=== PATIENT | male | born 1945 | race Hispanic/Latino ===

== ENCOUNTER 2018-01-03 15:53 | Inpatient (IN) | payer MEDICARE, OTHER ==
[2018-01-03 16:10] VITALS: BMI 34.1
--- NOTE | 2018-01-03 16:57 | ED PDOC ---
Arrival/HPI - General Chief Complaint: Abnormal Skin Integrity Time Seen by Provider: 01/03/18 16:06 Historian: Patient - History of Present Illness Narrative History of Present Illness (Text): 01/03/18 16:50 72 m with pmhx dm 2 and htn, recently treated for c. difficle presents to the ED with chief complaint of jaundice. Patient states he was treated for c.diff, was placed on oral antibiotics, diarrhea resolved. Patient states this past Wednesday he noticed yellowing of his skin, saw pcp and was sent to the ED for evaluation. Patient denies any associated fever, no abdominal pain, no vomiting, no recent sick contacts, no recent foreign travel, no abnormal po intake. Patient admit to tea colored urine within the same time frame of jaundice. 01/03/18 17:25 Time/Duration: < week Symptom Onset: Gradual Symptom Course: Unchanged Activities at Onset: Light Context: Home Past Medical History - Provider Review Nursing Documentation Reviewed: Yes - Infectious Disease Hx of Infectious Diseases: None - Cardiac Hx Cardiac Disorders: Yes Hx Hypertension: Yes - Pulmonary Hx Respiratory Disorders: No - Neurological Hx Neurological Disorder: No - HEENT Hx HEENT Disorder: No - Renal Hx Renal Disorder: No - Endocrine/Metabolic Hx Endocrine Disorders: Yes Hx Diabetes Mellitus Type 2: Yes - Hematological/Oncological Hx Blood Disorders: No - Integumentary Hx Dermatological Disorder: No - Musculoskeletal/Rheumatological Hx Musculoskeletal Disorders: No - Gastrointestinal Hx Gastrointestinal Disorders: No - Genitourinary/Gynecological Hx Genitourinary Disorders: No - Psychiatric Hx Psychophysiologic Disorder: No Hx Substance Use: No Family/Social History - Physician Review Nursing Documentation Reviewed: Yes Family/Social History: No Known Family HX Smoking Status: Never Smoked Hx Alcohol Use: Yes Frequency of alcohol use: Socially Hx Substance Use: No Allergies/Home Meds Allergies/Adverse Reactions: Allergies No Known Allergies Allergy (Verified 01/03/18 16:21) Home Medications: Home Meds Medication Instructions Recorded Confirmed Insulin Glargine, Recombina 100 ml INJ DAILY 01/03/18 01/03/18 [Lantus] Lisinopril 2.5 mg PO DAILY 01/03/18 01/03/18 RX: Finasteride [Proscar] 5 mg PO DAILY 01/03/18 01/03/18 RX: Glimepiride [amaRYL] 4 mg PO DAILY 01/03/18 01/03/18 RX: MetFORMIN [glucoPHAGE] 1,000 mg PO DAILY 01/03/18 01/03/18 RX: Rosuvastatin Calcium [Crestor] 40 mg PO DAILY 01/03/18 01/03/18 SITagliptin [Januvia] 100 mg PO DAILY 01/03/18 01/03/18 Review of Systems - Physician Review All systems were reviewed & negative as marked: Yes - Review of Systems Constitutional: absent: Fevers Respiratory: absent: SOB, Cough Cardiovascular: absent: Chest Pain, WHITE Gastrointestinal: absent: Abdominal Pain, Diarrhea, Nausea, Vomiting Genitourinary Male: absent: Dysuria, Hematuria Musculoskeletal: absent: Back Pain, Neck Pain Skin: Other (Jaundice). absent: Rash Neurological: absent: Headache, Dizziness Psychiatric: absent: Anxiety Physical Exam - Physical Exam Narrative Physical Exam (Text): 01/03/18 16:58 Gen: VS reviewed, alert, well developed, well nourished, nontoxic, mild distress Eye: EOMI, PERRL, jaundiced sclera Neck: no JVD, supple, no adenopathy CV: regular rate, regular rhythm, no rubs,no murmur, S1, S2 Pulm: no distress, clear to auscultation, no wheeze, no rhonchi, breath sounds equal, no rales Abd: soft, nontender, no guarding, no rebound, no rigidity Ext: no edema Skin: good color, no rash, no cyanosis Psych: responds appropriately to questions, normal affect Neuro: oriented x3, CN2-12 intact grossly, motor intact, sensation intact Vital Signs Reviewed: Yes Vital Signs Temp Pulse Resp BP Pulse Ox 01/03/18 16:10 98.2 F 68 18 121/65 99 Temperature: Afebrile Blood Pressure: Normal Pulse: Regular Respiratory Rate: Normal Appearance: Positive for: Well-Appearing, Non-Toxic, Comfortable Pain Distress: None Mental Status: Positive for: Alert and Oriented X 3 Medical Decision Making ED Course and Treatment: 01/03/18 16:58 Impression: 72 year old male presents to the Emergency department for evaluation of painless jaundice, suspected hepatitis. Pending labs, the presumption is the patient will require admission to the hospital. Differential Diagnosis included but are not limited to: Hepatitis Plan: -- Labs -- UA -- Reassess and disposition Prior Visits: Notes and results from previous visits were reviewed. Progress Notes: 01/03/18 18:[address] herman, pending US, re-eval,dispo - Scribe Statement The provider has reviewed the documentation as recorded by the Scribe .Jaiden Kirk. All medical record entries made by the Scribe were at my direction and personally dictated by me. I have reviewed the chart and agree that the record accurately reflects my personal performance of the history, physical exam, medical decision making, and the department course for this patient. I have also personally directed, reviewed, and agree with the discharge instructions and disposition.\ Disposition/Present on Arrival - Present on Arrival Any Indicators Present on Arrival: No History of DVT/PE: No History of Uncontrolled Diabetes: No Urinary Catheter: No History of Decub. Ulcer: No History Surgical Site Infection Following: None - Disposition Have Diagnosis and Disposition been Completed?: Yes Diagnosis: Elevated LFTs, Jaundice Disposition: HOSPITALIZED Disposition Time: 19:00 Patient Plan: Admission Patient Problems: Current Active Problems Problem Status Onset Elevated LFTs Acute Jaundice Acute Condition: FAIR
[2018-01-03 17:31] LABS: BASO # 0.05 K/mm3 (0.0-2.0); BASO % 0.9 % (0.0-3.0); EOS # 0.3 (0.0-0.7); EOS % 6.4 % (1.5-5.0); GRAN # 3.47 (1.4-6.5); GRAN % 65.7 % (50.0-68.0); HEMOGLOBIN 10.2 g/dL (14.0-18.0); LYMPH # 1.1 (1.2-3.4); LYMPH % 20.6 % (22.0-35.0); MEAN CELL VOLUME 89.9 fl (80.0-105.0); MEAN CORPUSCULAR HEMOGLOBIN 29.5 pg (25.0-35.0); MEAN CORPUSCULAR HGB CONC 32.8 g/dl (31.0-37.0); MONO # 0.3 (0.1-0.6); MONO % 6.4 % (1.0-6.0); RBC 3.46 10^6/uL (3.5-6.1); RED CELL DISTRIBUTION WIDTH 17.8 % (11.5-14.5); WHITE BLOOD COUNT 5.3 10^3/uL (4.5-11.0)
[2018-01-03 17:32] LABS: ALT/SGPT 81 U/L (7-56); AST/SGOT 159 U/L (17-59); BILIRUBIN,DIRECT 13.2 mg/dL (0.0-0.4); BLOOD UREA NITROGEN 11 mg/dL (7-21); CALCIUM 9.3 mg/dL (8.4-10.5); GFR NON-AFRICAN AMERICAN > 60
[2018-01-03 17:37] LABS: ALB/GLOB RATIO 1.1 (1.1-1.8); ALBUMIN 3.7 g/dL (3.0-4.8)
[2018-01-03 17:38] LABS: INR 1.22; PARTIAL THROMBOPLASTIN TIME 26.2 Seconds (25.1-36.5)
[2018-01-03 18:22] LABS: PH,URINE 6.5 (4.7-8.0); URINE BILIRUBIN LARGE (NEGATIVE); URINE BLOOD NEGATIVE (NEGATIVE); URINE GLUCOSE (UA) 100 mg/dL (NEGATIVE); URINE LEUKOCYTE ESTERASE TRACE Leu/uL (NEGATIVE); URINE PROTEIN 100 mg/dL (<30 mg/dL)
[2018-01-03 18:23] LABS: URINE APPEARANCE SL CLOUDY (CLEAR); URINE COLOR DARK BROWN (YELLOW); URINE RBC NEGATIVE /hpf (0-2); URINE WBC 0 - 2 /hpf (0-6)
[2018-01-03 18:24] LABS: URINE BACTERIA TRACE (NEG)
--- NOTE | 2018-01-03 19:06 | US ---
Date of service: 01/03/2018 HISTORY: elevated tbili COMPARISON: None. TECHNIQUE: Sonographic evaluation of the right upper quadrant of the abdomen. FINDINGS: LIVER: Measures 17.1 cm in length. Mildly increased echogenicity of the liver parenchyma. No mass. No intrahepatic bile duct dilatation. GALLBLADDER: Gallstones are noted. There is mild/slight gallbladder wall thickening noted. COMMON BILE DUCT: Measures 6.3 mm. No stones. No dilatation. PANCREAS: Unremarkable as visualized. No mass. No ductal dilatation. RIGHT KIDNEY: Measures 10.3 x 5.4 x 5.9 cm in length. Normal echogenicity. No calculus, mass, or hydronephrosis. AORTA: No aneurysmal dilatation. IVC: Unremarkable. OTHER FINDINGS: None . IMPRESSION: Gallstones and slight gallbladder wall thickening. No evidence of pericholecystic fluid. Slightly echogenic liver.
--- NOTE | 2018-01-03 20:44 | ED PDOC ---
Physical Exam Vital Signs Reviewed: Yes Vital Signs Temp Pulse Resp BP Pulse Ox 01/03/18 19:43 98.2 F 56 L 18 130/65 97 01/03/18 16:10 98.2 F 68 18 121/65 99 Temperature: Afebrile Blood Pressure: Normal Pulse: Regular Respiratory Rate: Normal Appearance: Positive for: Well-Appearing, Non-Toxic, Comfortable Pain Distress: None Mental Status: Positive for: Alert and Oriented X 3 Finger Stick Blood Glucose: 227 Medical Decision Making ED Course and Treatment: 01/03/18 20:30 Patient signed out to me by Dr. Allen, pending US report and admission. 01/03/18 20:35 US reviewed by radiologist, shows: Gallstones and slight gallbladder wall thickening. No evidence of pericholecystic fluid. Slightly echogenic liver. 01/03/18 20:[address] Gamble, the patient's GI doctor, and he is aware of case. Spoke with Dr. Rodríguez who will admit to her service. - Lab Interpretations Lab Results: 01/03/18 17:22 01/03/18 17:10 Lab Results 01/03/18 18:01: Urine Color Dark brown, Urine Appearance Sl cloudy, Urine pH 6.5 , Ur Specific [place] 1.025, Urine Protein 100 H, Urine Glucose (UA) 100 H, Urine Ketones Trace H, Urine Blood Negative, Urine Nitrate Positive H, Urine Bilirubin Large H, Urine Urobilinogen 1.0 H, Ur Leukocyte Esterase Trace H, Urine RBC Negative, Urine WBC 0 - 2, Ur Epithelial Cells 3 - 4, Urine Bacteria Trace 01/03/18 17:22: PT 14.0 H, INR 1.22, APTT 26.2 01/03/18 17:22: WBC 5.3, RBC 3.46 L, Hgb 10.2 L, Hct 31.1 L, MCV 89.9, MCH 29.5, MCHC 32.8, RDW 17.8 H, Plt Count 130, MPV , Gran % 65.7, Lymph % (Auto) 20.6 L, [place] % (Auto) 6.4 H, Eos % (Auto) 6.4 H, Baso % (Auto) 0.9, Gran # 3.47, Lymph # (Auto) 1.1 L, [place] # (Auto) 0.3, Eos # (Auto) 0.3, Baso # (Auto) 0.05 01/03/18 17:19: POC Glucose (mg/dL) 227 H 01/03/18 17:10: Sodium 139, Potassium 4.0, Chloride 107, Carbon Dioxide 22, Anion Gap 15, BUN 11, Creatinine 1.0, Est GFR ( Amer) > 60, Est GFR (Non- Af Amer) > 60, Random Glucose 216 H, Calcium 9.3, Magnesium 1.8, Total Bilirubin 16.7 H, Direct Bilirubin 13.2 H, AST 159 H, ALT 81 H, Alkaline Phosphatase 610 H , Total Creatine Kinase 190, Total Protein 7.1, Albumin 3.7, Globulin 3.4, Albumin/Globulin Ratio 1.1 - RAD Interpretation Radiology Orders: 01/03/18 18:09 GALLBLADDER & PANCREAS [US] Stat Disposition/Present on Arrival - Present on Arrival Any Indicators Present on Arrival: No History of DVT/PE: No History of Uncontrolled Diabetes: No Urinary Catheter: No History of Decub. Ulcer: No History Surgical Site Infection Following: None - Disposition Have Diagnosis and Disposition been Completed?: Yes Diagnosis: Elevated LFTs, Jaundice Disposition: HOSPITALIZED Disposition Time: 19:30 Condition: FAIR
[2018-01-03 21:17] LABS: HEPATITIS B SURFACE AG Negative (NEGATIVE)
[2018-01-03 21:23] LABS: HEPATITIS A IGM NEGATIVE (NEGATIVE); HEPATITIS B CORE AB NEGATIVE (NEGATIVE)
[2018-01-03 21:34] LABS: HEPATITIS C ANTIBODY NEGATIVE (NEGATIVE)
[2018-01-03] MEDS: Insulin Lispro (HUMAlog) HIGH Coverage SC SCH (22:50)
[2018-01-03] MEDS: Sodium Chloride 0.45% 1,000 ML IV SCH (22:59)
--- NOTE | 2018-01-04 06:20 | HP ---
DATE OF EXAM: 01/03/2018 HISTORY OF PRESENT ILLNESS: The patient is 72 years old who came to emergency room after he noticed that his skin color is getting yellowish and so is his eye color. So, he saw primary care doctor and he was referred to dust collector and the dust collector advised him to come to emergency room for further evaluation. The patient states that he was having diarrhea and he was found to be positive for C. diff. He was give antibiotics. His diarrhea resolved. He has no abdominal pain, does complain of decreased appetite. No history of fever or chills. No history of travel abroad. He does complain of yellowish discoloration of the eyes and also dark-color urine. PAST MEDICAL HISTORY: Significant for hypertension and dependent diabetes. SOCIAL HISTORY: He is . Denies smoking or drinking. Only socially drinks. MEDICATIONS AT HOME: He is on lisinopril 2.5 daily, Lantus at bedtime, Amaryl 4 mg daily, Proscar 5 mg daily, Januvia 100 mg daily, Crestor 40 mg daily, metformin 1000 twice a day. PHYSICAL EXAMINATION: GENERAL: He is awake and alert with icteric sclerae, symmetrical face. NECK: No thyromegaly, no lymphadenopathy. HEART: S1, S2 audible. ABDOMEN: Soft, nontender. No rebound. No guarding. NEUROLOGICAL: The patient is awake, alert, oriented, communicative. LABORATORY DATA: WBC 5.3, hemoglobin 10.2, hematocrit 31, platelets of 130. PT 14, INR 1.22. Chemistry: Sodium 139, potassium 4, chloride 107, CO2 of 22, BUN 11, creatinine 1. Blood sugar of 227. His total bili 16.7, direct bili 13.3, AST 159, ALT 81, alk phos 610. Urinalysis shows positive nitrite, slight bilirubin, trace leukocyte. Hepatitis profile is negative. ASSESSMENT: 1. Obstructive jaundice, rule out underlying malignancy. 2. Drug-induced hepatitis. 3. Insulin dependent diabetes. 4. Hypertension. 5. Hyperlipidemia. PLAN: The patient will be admitted. We will start him on IV fluid. We will follow up his electrolyte in a.m. and also monitor his blood sugar; resume his usual medication, consult Dr. Cordoba. We will follow up and he will need MRCP to rule out underlying malignancy, biliary versus pancreatic malignancy. Follow up the patient. Derrick Rodríguez MD
[2018-01-04 07:40] LABS: BASO # 0.06 K/mm3 (0.0-2.0); BASO % 1.1 % (0.0-3.0); EOS # 0.4 (0.0-0.7); EOS % 8.2 % (1.5-5.0); GRAN # 2.99 (1.4-6.5); GRAN % 56.7 % (50.0-68.0); HEMOGLOBIN 9.8 g/dL (14.0-18.0); LYMPH # 1.1 (1.2-3.4); LYMPH % 20.9 % (22.0-35.0); MEAN CELL VOLUME 89.5 fl (80.0-105.0); MEAN CORPUSCULAR HEMOGLOBIN 28.7 pg (25.0-35.0); MONO # 0.7 (0.1-0.6); MONO % 13.1 % (1.0-6.0); RBC 3.42 10^6/uL (3.5-6.1); RED CELL DISTRIBUTION WIDTH 17.7 % (11.5-14.5); WHITE BLOOD COUNT 5.3 10^3/uL (4.5-11.0)
[2018-01-04 07:52] LABS: ALT/SGPT 83 U/L (7-56); AST/SGOT 151 U/L (17-59); BLOOD UREA NITROGEN 10 mg/dL (7-21); CALCIUM 9.1 mg/dL (8.4-10.5); GFR NON-AFRICAN AMERICAN > 60
[2018-01-04 08:16] LABS: ALBUMIN 3.4 g/dL (3.0-4.8)
[2018-01-04] MEDS: Insulin Lispro (HUMAlog) HIGH Coverage SC SCH ×4 (08:22→22:02)
[2018-01-04] MEDS: Sodium Chloride 0.45% 1,000 ML IV SCH ×2 (08:37→20:39)
--- NOTE | 2018-01-04 10:52 | CON ---
DATE: 01/04/2018 HISTORY OF PRESENT ILLNESS: I saw Mr. Talavera this morning. He is a 72-year-old white male seen for the first time in my office on 12/22/2017. The patient has a past medical history of hypertension, diabetes, increased lipids. The patient was recently treated for C. difficile colitis by Dr. Cummings with antibiotics. MEDICATIONS: At the time of his evaluation at my office meds include metformin, statin, Januvia, levothyroxine, glimepiride, finasteride, Lantus and lisinopril. He was on two antibiotics for C. difficile, which included Cipro and metronidazole. The Cipro was subsequently discontinued and the patient remained on metronidazole therapy. I was called yesterday by the patient who indicated increasing degree of yellowing of his eyes as well as skin over the previous week or so. The patient indicated some pruritus of the skin, but denied hematemesis, rectal bleeding or abdominal pain. He noted that the urine was Coca Cola colored. The patient did not exhibit any back pain; however, on initial evaluation in the office one of the reasons for his consultation was for epigastric abdominal pain. Note that the only medication prescribed by my office for his problem was pantoprazole. After reviewing the patient's symptoms last night, he was advised to consider further evaluation in the emergency room by imaging studies as well as blood work. I discussed this with the ER doctor last night. PHYSICAL EXAMINATION: VITAL SIGNS: I reviewed this patient's vital signs. HEENT: Significant for scleral icterus. LUNGS: Clear to auscultation. HEART: Regular rhythm. ABDOMEN: Soft. No tenderness elicited nor protuberant. LABORATORY DATA: Reviewed the patient's ultrasound there, which includes increased echogenicity of the liver, no intrahepatic duct dilatation. Throughout fullness is noted with slight gallbladder wall thickening. The bile duct is apparently within normal limits. Pancreas was incompletely visualized, but there was no mass nor ductal dilatation. Laboratory data is significant for INR 1.22. His white count is 5.2 with an H and H of 10 and 31, platelet count 130. Chemistry was significant for normal electrolytes, BUN and creatinine ratio was as noted. His glucose is running in the mid 200 to 170 range. The patient's albumin is 3.7, alkaline phosphatase 610. AST, ALT ratio 159/81 with a total bilirubin 16.7 and direct bili of 13.2. His hepatitis serology is negative. Urine is significant for significant bilirubin, as well as protein and glucose. ASSESSMENT: This is a 73-year-old male with new onset jaundice over the past week or so. There is a large differential diagnosis, but obstructive etiology has to be ruled out first. I discussed possible studies with the patient over the phone before he went to the hospital, one of which was completed which was the ultrasound, reviewed above. MRCP is scheduled for this morning. Depending on results of the MRCP, the patient may need a CAT scan and possibly an ERCP. If all the above tests are negative, one has to assume a possible drug reaction (DILI) as a reason for his elevated LFT picture. At the current time in point, aside from being jaundiced, the patient is relatively asymptomatic. Again, the results of imaging studies will delineate the progression of testing this patient must undertake in the next couple of days. The patient will be seen with Dr. Rodríguez later around this morning. I reviewed the patient's orders which consists of IV fluids, finasteride as well as lisinopril. He is on a heart-healthy diet at the current time in point. Note that the patient has completed a 2-week course of antibiotics for C. difficile. His bowel movements this morning he related were normal color and normal consistency. Mushtaq Cordoba DO, PhD [facility]
[2018-01-04 11:14] LABS: PLATELET COUNT 135 10^3/uL (120.0-450.0)
[2018-01-04] MEDS ORDERED: Gadodiamide 287 MG/ML VIAL (20ML) IV ONE (12:32)
--- NOTE | 2018-01-04 12:39 | CP.PCM.PN ---
Subjective - Date & Time of Evaluation Date of Evaluation: 01/04/18 Time of Evaluation: 10:00 - Subjective Subjective: pt is a 72 y.o. male with pmhx dm 2 and htn, recently treated for c. diff presented to the ED due to jaundice. Patient stated he noticed yellowing of his skin, saw pcp and was sent to the ED for evaluation. He c/o of diffuse cramping like sensation on lower abd but denies nausea, vomiting, diarrhea or constipation. Objective - Vital Signs/Intake and Output Vital Signs (last 24 hours): Temp Pulse Resp BP Pulse Ox 97.7 F 63 20 119/68 97 01/04/18 08:48 01/04/18 09:32 01/04/18 08:45 01/04/18 09:32 01/04/18 08:48 Intake and Output: 01/04/18 01/04/18 06:59 18:59 Output Total 500 Balance -500 - Medications Medications: Current Medications Finasteride (Proscar) 5 mg PO DAILY [facility] Last Admin: 01/04/18 09:33 Dose: 5 mg Sodium Chloride (Sodium Chloride 0.45%) 1,000 mls @ 100 mls/hr IV .Q10H [facility] Last Admin: 01/04/18 08:37 Dose: 100 mls/hr Insulin Human Lispro (Humalog High) 0 units SC ACHS [facility]; Protocol Last Admin: 01/04/18 08:22 Dose: Not Given Lisinopril (Zestril) 2.5 mg PO DAILY [facility] Last Admin: 01/04/18 09:32 Dose: 2.5 mg - Labs Labs: 01/04/18 07:15 01/04/18 07:15 PT 14.0 SECONDS (9.4-12.5) H 01/03/18 17:22 INR 1.22 01/03/18 17:22 APTT 26.2 Seconds (25.1-36.5) 01/03/18 17:22 - Constitutional Appears: Well, Non-toxic, No Acute Distress - Head Exam Head Exam: ATRAUMATIC, NORMAL INSPECTION, NORMOCEPHALIC - Eye Exam Eye Exam: Scleral icterus - ENT Exam ENT Exam: Normal Exam - Neck Exam Neck Exam: Full ROM - Respiratory Exam Respiratory Exam: Clear to Ausculation Bilateral, NORMAL BREATHING PATTERN - Cardiovascular Exam Cardiovascular Exam: REGULAR RHYTHM, +S1, +S2 - GI/Abdominal Exam GI & Abdominal Exam: Soft, Normal Bowel Sounds - Rectal Exam Rectal Exam: Deferred - Back Exam Back Exam: NORMAL INSPECTION - Neurological Exam Neurological Exam: Alert, Awake, Oriented x3 - Skin Additional comments: +jaundice Assessment and Plan - Assessment and Plan (Free Text) Assessment: pt is a 72 y.o. male with pmhx dm 2 and htn, recently treated for c. diff presented to the ED due to jaundice. Patient stated he noticed yellowing of his skin, saw pcp and was sent to the ED for evaluation. He c/o of diffuse cramping like sensation on lower abd but denies nausea, vomiting, diarrhea or constipation. His LFTs are found to be elevated and GB u/s showed gallstones and mild GB wall thickening. Plan: C/W IVF Pending MRCP GI on consult Meds per MAR Will continue to follow
--- NOTE | 2018-01-04 22:02 | PN ---
DATE: 01/04/2018 SUBJECTIVE: The patient is 72-year-old, seen and examined, eating and tolerating. PHYSICAL EXAMINATION: VITAL SIGNS: He is afebrile, pulse 72, respirations 18, and blood pressure 109/70. LUNGS: Bilateral fair air flow. No rhonchi or crackles. HEART: S1, S2 audible. ABDOMEN: Soft, obese, and nontender. No rebound. No guarding. NEUROLOGICAL: The patient is awake, alert, oriented, able to communicate. LABORATORY DATA: WBC 5.3, hemoglobin 9.8, hematocrit 30.6, and platelets 135. Chemistry: Sodium 139, potassium 3.9, chloride 107, CO2 of 24, BUN 10, creatinine 1. Blood sugar 203. Total bili 16.6, direct bili 13.2, AST 151, ALT 83, alk phos is 581. Urinalysis is unremarkable. Hepatitis profile is negative. MRCP is pending. ASSESSMENT: 1. Obstructive jaundice. 2. Recent Clostridium difficile colitis. 3. Noninsulin-dependent diabetes. 4. Hypertension. 5. Hyperlipidemia. PLAN: We will continue on IV fluids. Follow up MRCP and monitor blood sugar. We will hold his statin. Follow up the patient in a.m. Derrick Rodríguez MD
[2018-01-05] MEDS: Sodium Chloride 0.45% 1,000 ML IV SCH ×2 (05:46→22:19)
[2018-01-05 07:14] LABS: HEMOGLOBIN 9.7 g/dL (14.0-18.0); MEAN CORPUSCULAR HEMOGLOBIN 28.5 pg (25.0-35.0); MEAN CORPUSCULAR HGB CONC 31.7 g/dl (31.0-37.0); PLATELET COUNT 148 10^3/uL (120.0-450.0); WHITE BLOOD COUNT 5.2 10^3/uL (4.5-11.0)
[2018-01-05 07:16] LABS: ALT/SGPT 78 U/L (7-56); AST/SGOT 142 U/L (17-59); BLOOD UREA NITROGEN 10 mg/dL (7-21); CALCIUM 9.5 mg/dL (8.4-10.5); GFR NON-AFRICAN AMERICAN > 60
[2018-01-05 07:31] LABS: ALB/GLOB RATIO 1.1 (1.1-1.8); ALBUMIN 3.4 g/dL (3.0-4.8)
[2018-01-05] MEDS: Insulin Lispro (HUMAlog) HIGH Coverage SC SCH ×4 (10:50→22:18)
--- NOTE | 2018-01-05 11:26 | PN ---
DATE: 01/05/2018 SUBJECTIVE: I saw Mr. Talavera this morning. He is a 72-year-old white male with past medical history of hypertension, diabetes, increased lipids, C. difficile colitis, admitted with complaints of new-onset jaundice, and scleral icterus, which occurred rapidly over a period of roughly one week. The patient was previously on Cipro and metronidazole for treatment of C. difficile colitis. He was seen in the office. The Cipro was discontinued and the patient was maintained for the completion of his therapy with metronidazole. Patient indicated he was pain free however, had jaundice. He was advised to go to the emergency room for further evaluation. The patient stated that his urine was Coca Cola colored. On examining the patient this morning, again, the patient is pain free. Still jaundiced, but on a positive note, the patient's urine is significantly less dark than yesterday. His bowel movements are normal in color as well. He has no nausea, vomiting, rectal bleeding, or hematemesis. He was able to complete an MR study yesterday. He was followed up by Dr. Rodríguez yesterday morning. PHYSICAL EXAMINATION VITAL SIGNS: I reviewed this patient's vital signs. HEENT: Significant for scleral icterus. LUNGS: Clear to auscultation, apical. Decreased breath sounds at bases. HEART: Irregular rhythm. ABDOMEN: Soft. No tenderness elicited anywhere. LABORATORY DATA: Most recent laboratory data indicate some drop in H and H probably due to hydration issues. Platelet count is still around 135. Chemistry indicates as of 7 o'clock yesterday morning, bilirubin of 16 with an AST-ALT ratio of 151/83, alk phos 581. Note that laboratory data is pending for this morning. DIAGNOSTIC DATA: I reviewed the MR images, which are not the best. Clarification by the radiologist is pending for this morning. Note that the report is still not in [employer]. ASSESSMENT AND PLAN: A 72-year-old male with a rapid new onset of jaundice over a period of one week. Laboratory data is pending this morning. Results of the MRCP is still pending. Again, as indicated previously, depending on results of MRCP, the patient may need either an ERCP or a followup CAT scan study. Imaging study results will delineate the test progression of the patient's. Note that if everything is negative in the workup of biliary obstruction, differential diagnosis suggests possibility of a drug-induced liver injury. If the latter is the case since the patient is off antibiotics at the current time point, would expect biliary data to improve, the bilirubin may exhibit a significant lag in improvement relative to other parameters. Note that the patient completed course of antibiotics for C. difficile. His bowel movements appeared to be normal in consistency and color. Follow up with Dr. Rodríguez as well as the nurse practitioner later on this morning. Mushtaq Cordoba DO, PhD [facility]
--- NOTE | 2018-01-05 11:51 | CP.PCM.PN ---
Subjective - Date & Time of Evaluation Date of Evaluation: 01/05/18 Time of Evaluation: 09:00 - Subjective Subjective: pt seen and examined at bedside. Denies abdominal pain, nausea, vomiting or constipation. Objective - Vital Signs/Intake and Output Vital Signs (last 24 hours): Temp Pulse Resp BP Pulse Ox 98 F 62 16 126/72 98 01/05/18 08:44 01/05/18 11:19 01/05/18 08:44 01/05/18 11:19 01/05/18 08:44 Intake and Output: 01/05/18 01/05/18 06:59 18:59 Intake Total 600 Output Total 2350 Balance -1750 - Medications Medications: Current Medications Finasteride (Proscar) 5 mg PO DAILY [facility] Last Admin: 01/05/18 11:20 Dose: 5 mg Sodium Chloride (Sodium Chloride 0.45%) 1,000 mls @ 100 mls/hr IV .Q10H [facility] Last Admin: 01/05/18 05:46 Dose: 100 mls/hr Insulin Human Lispro (Humalog High) 0 units SC ACHS [facility]; Protocol Last Admin: 01/05/18 10:50 Dose: Not Given Lisinopril (Zestril) 2.5 mg PO DAILY [facility] Last Admin: 01/05/18 11:19 Dose: 2.5 mg - Labs Labs: 01/05/18 06:40 01/05/18 06:40 PT 14.0 SECONDS (9.4-12.5) H 01/03/18 17:22 INR 1.22 01/03/18 17:22 APTT 26.2 Seconds (25.1-36.5) 01/03/18 17:22 - Constitutional Appears: Well, Non-toxic - Head Exam Head Exam: ATRAUMATIC, NORMAL INSPECTION - Eye Exam Eye Exam: Scleral icterus - ENT Exam ENT Exam: Mucous Membranes Moist - Neck Exam Neck Exam: Full ROM, Normal Inspection - Respiratory Exam Respiratory Exam: Clear to Ausculation Bilateral, NORMAL BREATHING PATTERN - Cardiovascular Exam Cardiovascular Exam: +S1, +S2 - GI/Abdominal Exam GI & Abdominal Exam: Soft, Normal Bowel Sounds - Rectal Exam Rectal Exam: Deferred - Extremities Exam Extremities Exam: Full ROM - Neurological Exam Neurological Exam: Alert, Awake - Skin Additional comments: jaundiced Assessment and Plan - Assessment and Plan (Free Text) Assessment: pt is a 72 y.o. male with pmhx dm 2 and htn, recently treated for c. diff presented to the ED due to jaundice. His LFTs are found to be elevated and GB u/s showed gallstones and mild GB wall thickening. Depending on MRCP result, pt may need ERCP. Plan: C/W IVF Pending MRCP results Pending CT A/P GI on consult Meds per APR Will continue to follow
[2018-01-05] MEDS ORDERED: Barium Sulfate Susp 2.1% w/v, 2.0% w/w 450 mL Bottle PO ONE (13:20)
--- NOTE | 2018-01-05 13:29 | MRI ---
Date of service: 01/04/2018 PROCEDURE: MRI Abdomen with and without contrast HISTORY: COMPARISON: None available. TECHNIQUE: Multisequence, multiplanar MR images of the abdomen with and without gadolinium contrast enhancement. FINDINGS: LIVER: Unremarkable. GALLBLADDER: Gallstones. Mild central and extrahepatic biliary dilatation the herberth hepatis measuring up to 8 millimeters in the herberth hepatis. The distal bile duct is not well identified which may be due to an underlying stricture. SPLEEN: Unremarkable. PANCREAS: Hyperintense T2 lesion measuring 5 millimeters in the pancreatic body/tail junction, likely benign. ADRENALS: Unremarkable. KIDNEYS: Unremarkable. AORTA: No aneurysm. ASCITES: None. PERITONEUM: Unremarkable. LYMPH NODES: Unremarkable. OTHER FINDINGS: Assessment severely limited due to respiratory motion artifact. IMPRESSION: Gallstones. Mild central and extrahepatic biliary dilatation the herberth hepatis measuring up to 8 millimeters in the herberth hepatis. The distal bile duct is not well identified which may be due to an underlying stricture. Assessment severely limited due to respiratory motion artifact. Pancreatic head and body not well assessed. Recommend correlation with pre and post-contrast CT scan of the abdomen.
--- NOTE | 2018-01-05 14:21 | CP.PCM.CON ---
<Leny Reardon - Last Filed: 01/05/18 14:22> History of Present Illness - History of Present Illness History of Present Illness: Gastroenterology Fellow/PGY6 Consult Note 72 year old male with PMH of HTN, HLD, and Diabetes (10-15 years) presenting with yellowing of skin. Patient reports recent completion of cipro/flagyl for Cdiff diarrhea. Within one to two days, the patient's daughter noted yellowing of his eyes with progressive skin yellowing leading to recommendation of ER presentation by established jointer machine. Notes associated right shoulder pain, chills, poor appetite for last ten days, and one bilious vomitus episode. Denies abdominal pain, leg swelling, confusion, pruritis, diarrhea, constipation, melena, hematochezia, or unintentional weight loss. Patient is noted to require insulin for diabetic control for one year. Family History- denies stomach cancer, colon cancer, Liver cancer, pancreatic cancer Social History- denies tobacco or illicit drug use, social alcohol use Surgical History- right shoulder Review of Systems - Review of Systems Review of Systems: 12-point review of systems negative except for as above Past Patient History - Infectious Disease Hx of Infectious Diseases: None - Past Social History Smoking Status: Never Smoked - CARDIAC Hx Cardiac Disorders: Yes Hx Hypertension: Yes - PULMONARY Hx Respiratory Disorders: No - NEUROLOGICAL Hx Neurological Disorder: No - HEENT Hx HEENT Problems: No - RENAL Hx Chronic Kidney Disease: No - ENDOCRINE/METABOLIC Hx Endocrine Disorders: Yes Hx Diabetes Mellitus Type 2: Yes - HEMATOLOGICAL/ONCOLOGICAL Hx Blood Disorders: No - INTEGUMENTARY Hx Dermatological Problems: No - MUSCULOSKELETAL/RHEUMATOLOGICAL Hx Musculoskeletal Disorders: No - GASTROINTESTINAL Hx Gastrointestinal Disorders: No - GENITOURINARY/GYNECOLOGICAL Hx Genitourinary Disorders: No - PSYCHIATRIC Hx Psychophysiologic Disorder: No Hx Substance Use: No - SURGICAL HISTORY Hx Surgeries: No Hx Amputation: No Hx Appendectomy: No Hx Cardiac Catheterization: No Hx Cholecystectomy: No Hx Coronary Stent: No Hx Gastric Bypass Surgery: No Hx Hysterectomy: No Hx Joint Replacement: No Hx Kidney Transplant: No Hx Liver Transplant: No Hx Mastectomy: No Hx Musculoskeletal Surgery: No Hx Open Heart Surgery: No Hx Orthopedic Surgery: No Hx Splenectomy: No Hx Valve Replacement: No Meds Allergies/Adverse Reactions: Allergies Allergy/AdvReac Type Severity Reaction Status Date / Time No Known Allergies Allergy Verified 01/03/18 16:21 - Medications Medications: Current Medications Finasteride (Proscar) 5 mg PO DAILY [facility] Last Admin: 01/05/18 11:20 Dose: 5 mg Sodium Chloride (Sodium Chloride 0.45%) 1,000 mls @ 100 mls/hr IV .Q10H [facility] Last Admin: 01/05/18 05:46 Dose: 100 mls/hr Insulin Human Lispro (Humalog High) 0 units SC ACHS [facility]; Protocol Last Admin: 01/05/18 10:50 Dose: Not Given Lisinopril (Zestril) 2.5 mg PO DAILY [facility] Last Admin: 01/05/18 11:19 Dose: 2.5 mg Physical Exam - Constitutional Appears: Non-toxic, No Acute Distress - Head Exam Head Exam: ATRAUMATIC, NORMOCEPHALIC - Eye Exam Eye Exam: EOMI, PERRL, Scleral icterus Pupil Exam: PERRL. absent: Mydriatic - ENT Exam ENT Exam: Mucous Membranes Moist, Normal Oropharynx - Neck Exam Neck exam: Positive for: Full Rom, Normal Inspection - Respiratory Exam Respiratory Exam: Clear to Auscultation Bilateral. absent: Rales, Rhonchi, Wheezes - Cardiovascular Exam Cardiovascular Exam: RRR, +S1, +S2. absent: Gallop, Rubs - GI/Abdominal Exam GI & Abdominal Exam: Normal Bowel Sounds, Soft. absent: Distended, Firm, Guarding, Organomegaly, Rebound, Rigid, Tenderness - Extremities Exam Extremities exam: Positive for: normal inspection. Negative for: pedal edema - Neurological Exam Neurological exam: Alert - Psychiatric Exam Psychiatric exam: Normal Affect, Normal Mood - Skin Skin Exam: Dry, Intact, Warm Additional comments: jaundice Results - Vital Signs Recent Vital Signs: Last Vital Signs Temp 98 F 01/05/18 08:44 Pulse 62 01/05/18 11:19 Resp 16 01/05/18 08:44 BP 126/72 01/05/18 11:19 Pulse Ox 98 01/05/18 08:44 - Labs Result Diagrams: 01/05/18 06:40 01/05/18 06:40 Labs: Laboratory Results - last 24 hr 01/04/18 01/04/18 01/05/18 16:10 21:51 06:30 WBC RBC Hgb Hct MCV MCH MCHC RDW Plt Count Sodium Potassium Chloride Carbon Dioxide Anion Gap BUN Creatinine Est GFR ( Amer) Est GFR (Non-Af Amer) POC Glucose (mg/dL) 149 H 217 H Random Glucose Calcium Total Bilirubin AST ALT Alkaline Phosphatase Lactate Dehydrogenase 484 Total Protein Albumin Globulin Albumin/Globulin Ratio 01/05/18 01/05/18 01/05/18 06:38 06:40 06:40 WBC 5.2 RBC 3.40 L Hgb 9.7 L Hct 30.6 L MCV 90.0 MCH 28.5 MCHC 31.7 RDW 18.0 H Plt Count 148 Sodium 138 Potassium 4.2 Chloride 106 Carbon Dioxide 23 Anion Gap 13 BUN 10 Creatinine 0.9 Est GFR ( Amer) > 60 Est GFR (Non-Af Amer) > 60 POC Glucose (mg/dL) 128 H Random Glucose 150 H Calcium 9.5 Total Bilirubin 18.4 H* AST 142 H ALT 78 H Alkaline Phosphatase 586 H Lactate Dehydrogenase Total Protein 6.3 Albumin 3.4 Globulin 3.0 Albumin/Globulin Ratio 1.1 01/05/18 11:26 WBC RBC Hgb Hct MCV MCH MCHC RDW Plt Count Sodium Potassium Chloride Carbon Dioxide Anion Gap BUN Creatinine Est GFR ( Amer) Est GFR (Non-Af Amer) POC Glucose (mg/dL) 255 H Random Glucose Calcium Total Bilirubin AST ALT Alkaline Phosphatase Lactate Dehydrogenase Total Protein Albumin Globulin Albumin/Globulin Ratio Assessment & Plan - Assessment and Plan (Free Text) Assessment: 72 year old male with PMH of HTN, HLD, and Diabetes (10-15 years, 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 Patient reports recent completion of cipro/flagyl for Cdiff diarrhea. Active treatment of conjugated hyperbilirubinemia concerning for obstructive jaundice. Plan: -MRCP and abdomen w/ and w/o with motion artifact -concern for central and extrahepatic dilatation -poor visualized of distal CBD -ordered CT pancreas protocol to rule out mass lesion -will likely benefit from EUS/ERCP -further recommendations for procedures after CT imaging <Yanely Rubio V - Last Filed: 01/05/18 21:58> Meds - Medications Medications: Current Medications Finasteride (Proscar) 5 mg PO DAILY [facility] Last Admin: 01/05/18 11:20 Dose: 5 mg Sodium Chloride (Sodium Chloride 0.45%) 1,000 mls @ 100 mls/hr IV .Q10H [facility] Last Admin: 01/05/18 05:46 Dose: 100 mls/hr Insulin Human Lispro (Humalog High) 0 units SC ACHS [facility]; Protocol Last Admin: 01/05/18 18:28 Dose: Not Given Lisinopril (Zestril) 2.5 mg PO DAILY [facility] Last Admin: 01/05/18 11:19 Dose: 2.5 mg Results - Vital Signs Recent Vital Signs: Last Vital Signs Temp 98 F 01/05/18 14:00 Pulse 60 01/05/18 14:00 Resp 20 01/05/18 14:00 BP 146/86 01/05/18 14:00 Pulse Ox 99 01/05/18 14:00 - Labs Result Diagrams: 01/05/18 06:40 01/05/18 06:40 Labs: Laboratory Results - last 24 hr 01/04/18 01/04/18 01/05/18 07:00 21:51 06:30 WBC RBC Hgb Hct MCV MCH MCHC RDW Plt Count PT INR APTT Sodium Potassium Chloride Carbon Dioxide Anion Gap BUN Creatinine Est GFR ( Amer) Est GFR (Non-Af Amer) POC Glucose (mg/dL) 217 H Random Glucose Calcium Total Bilirubin AST ALT Alkaline Phosphatase Lactate Dehydrogenase 484 Total Protein Albumin Globulin Albumin/Globulin Ratio CA 19-9 Antigen 3570 H 01/05/18 01/05/18 01/05/18 06:38 06:40 06:40 WBC 5.2 RBC 3.40 L Hgb 9.7 L Hct 30.6 L MCV 90.0 MCH 28.5 MCHC 31.7 RDW 18.0 H Plt Count 148 PT INR APTT Sodium 138 Potassium 4.2 Chloride 106 Carbon Dioxide 23 Anion Gap 13 BUN 10 Creatinine 0.9 Est GFR ( Amer) > 60 Est GFR (Non-Af Amer) > 60 POC Glucose (mg/dL) 128 H Random Glucose 150 H Calcium 9.5 Total Bilirubin 18.4 H* AST 142 H ALT 78 H Alkaline Phosphatase 586 H Lactate Dehydrogenase Total Protein 6.3 Albumin 3.4 Globulin 3.0 Albumin/Globulin Ratio 1.1 CA 19-9 Antigen 01/05/18 01/05/18 01/05/18 11:26 14:00 17:12 WBC RBC Hgb Hct MCV MCH MCHC RDW Plt Count PT 13.1 H INR 1.15 APTT 30.0 Sodium Potassium Chloride Carbon Dioxide Anion Gap BUN Creatinine Est GFR ( Amer) Est GFR (Non-Af Amer) POC Glucose (mg/dL) 255 H 235 H Random Glucose Calcium Total Bilirubin AST ALT Alkaline Phosphatase Lactate Dehydrogenase Total Protein Albumin Globulin Albumin/Globulin Ratio CA 19-9 Antigen 01/05/18 21:35 WBC RBC Hgb Hct MCV MCH MCHC RDW Plt Count PT INR APTT Sodium Potassium Chloride Carbon Dioxide Anion Gap BUN Creatinine Est GFR ( Amer) Est GFR (Non-Af Amer) POC Glucose (mg/dL) 254 H Random Glucose Calcium Total Bilirubin AST ALT Alkaline Phosphatase Lactate Dehydrogenase Total Protein Albumin Globulin Albumin/Globulin Ratio CA 19-9 Antigen Attending/Attestation - Attestation I have personally seen and examined this patient.: Yes I have fully participated in the care of the patient.: Yes I have reviewed all pertinent clinical information: Yes Notes (Text): This is an addendum to GI consult report dictated by the GI Fellow.The patient was seen and examined earlier. Medical records, lab studies, imagings were reviewed. Last 24 hours events reviewed. Agreed with the above treatment plan as outlined in GI Fellow 's notes with the addition of the followsig Imaging studies were reviewe Requested CTabdomen pancreatic protocol Patient would need EUS/ ERCP.we will review CT prior 01/05/18 21:52
[2018-01-05 14:28] LABS: INR 1.15; PROTHROMBIN TIME 13.1 SECONDS (9.4-12.5)
--- NOTE | 2018-01-05 16:23 | PN ---
DATE: 01/05/2018 SUBJECTIVE: The patient is a 72-year-old, seen and examined, very anxious to know the result. I reviewed MRCP with Dr. Kenny Moe who is recommending CT scan of the abdomen and pelvis. There is no apparent pancreatic mass or obstructing gallbladder, however, his bilirubin level is increasing. PHYSICAL EXAMINATION GENERAL: Today, he is awake, alert, oriented. Communicative. No abdominal pain. VITAL SIGNS: He is afebrile, pulse 62, respirations 16, blood pressure 126/72. LUNGS: Bilateral fair airflow. No rhonchi or crackle. HEART: S1, S2 audible. ABDOMEN: Soft, obese, nontender. No rebound, no guarding. NEUROLOGIC: The patient is awake and alert. Able to communicate. Ambulatory. LABORATORY DATA: WBC is 5.2, hemoglobin 9.7, hematocrit 30.6, platelets 148. Chemistry; sodium 138, potassium 4.2, chloride 106, CO2 of 23, BUN 10, creatinine 0.9, blood sugar 255. Total bili 18.6, AST 142, ALT 78, alkaline phosphatase 586. Urine cultures are negative. ASSESSMENT: 1. Obstructive jaundice. 2. Hypertension. 3. Recent Clostridium difficile colitis, was treated with Flagyl. 4. [id number] diabetes. PLAN: So, plan is we will order for CT scan of the abdomen and pelvis with IV contrast and once results are available, we will make further plan. Probably, the patient is going to need ERCP and we might have to involve Dr. Rubio for that. Derrick Rodríguez MD
[2018-01-06] MEDS: Sodium Chloride 0.45% 1,000 ML IV SCH (01:47)
[2018-01-06 08:28] LABS: ALBUMIN 3.5 g/dL (3.0-4.8); ALT/SGPT 76 U/L (7-56); AST/SGOT 129 U/L (17-59); BLOOD UREA NITROGEN 7 mg/dL (7-21); CALCIUM 9.5 mg/dL (8.4-10.5); GFR NON-AFRICAN AMERICAN > 60
[2018-01-06] MEDS: Insulin Lispro (HUMAlog) HIGH Coverage SC SCH ×3 (08:58→18:48)
--- NOTE | 2018-01-06 09:56 | PN ---
DATE: 01/06/2018 SUBJECTIVE: I saw Mr. Talavera this morning. He is a 72-year-old white male who was at the hospital with new-onset jaundice, epigastric pain and nausea with meals. At the bedside this morning, the patient's urine has cleared somewhat. Now it is a dark yellow instead of Ale-Cola color. Currently he does not have abdominal pain; however, he does exhibit some discomfort after eating as well as nausea. The patient is still jaundiced with scleral icterus. MRCP data was discussed with nurse practitioner yesterday. At the same time yesterday, in my note, the MRCP images did not clarify the situation completely. The patient does have mild biliary dilatation as well as gallstones, but as indicated in my note, the distal CBD was not well clarified though there is small lesion in the tail of pancreas. After discussion with nurse practitioner yesterday in conjunction with Dr. Rodríguez, Dr. Rubio is called in for consultation for possible performance of an ERCP/ EUS as the result of the pancreatic CT results____. PHYSICAL EXAMINATION VITAL SIGNS: I reviewed this patient's vital signs. HEENT: Significant for scleral icterus. LUNGS: Decreased breath sounds at base, were clear apical. HEART: Irregular. ABDOMEN: Soft. No tenderness elicited in the epigastric area, right upper quadrant. LABORATORY DATA: Indicate probable dilution effect on H and H. Note that the patient is not bleeding either by hematemesis or rectal bleeding. Platelet count 148, most recent INR 1.15, PT of 13. Review of laboratory data from yesterday morning indicate some decrease in alkaline phosphatase, AST/ALT ratio is still elevated at 142/78 and total bilirubin of 18.4. ASSESSMENT: This is a 72-year-old with new rapid onset of jaundice of roughly one week. He is experiencing some nausea and abdominal pain as well. The patient scheduled for an ERCP EUS some time today. Note that I reviewed the CT images and the report is still not on computer, but the pancreas does not clarify well on this CT scan. Further information will be obtained by the EUS ERCP study by Dr. Rubio. Laboratory data is pending this morning. Mushtaq Cordoba DO, PhD [facility] # [id number] MYRIAM
--- NOTE | 2018-01-06 11:25 | CP.PCM.PN ---
<Leny Reardon - Last Filed: 01/06/18 11:30> Subjective - Date & Time of Evaluation Date of Evaluation: 01/06/18 Time of Evaluation: 11:31 - Subjective Subjective: Gastroenterology Fellow/PGY6 Progress Note Patient in sitting in chair comfortably. Denies abdominal pain. Poor appetite due to postprandial bloating and discomfort. Admits to bowel movement yesterday. A 12-point review of systems negative except for as above. Objective - Vital Signs/Intake and Output Vital Signs (last 24 hours): Temp Pulse Resp BP Pulse Ox 98.1 F 60 20 118/65 100 01/06/18 06:00 01/06/18 06:00 01/06/18 06:00 01/06/18 06:00 01/06/18 06:00 Intake and Output: 01/06/18 01/06/18 06:59 18:59 Intake Total 960 Output Total 3100 Balance -2140 - Medications Medications: Current Medications Finasteride (Proscar) 5 mg PO DAILY [facility] Last Admin: 01/05/18 11:20 Dose: 5 mg Sodium Chloride (Sodium Chloride 0.45%) 1,000 mls @ 100 mls/hr IV .Q10H [facility] Last Admin: 01/06/18 01:47 Dose: 100 mls/hr Insulin Human Lispro (Humalog High) 0 units SC [facility]; Protocol Last Admin: 01/06/18 08:58 Dose: Not Given Lisinopril (Zestril) 2.5 mg PO DAILY [facility] Last Admin: 01/05/18 11:19 Dose: 2.5 mg - Labs Labs: 01/05/18 06:40 01/06/18 07:30 PT 13.1 SECONDS (9.4-12.5) H 01/05/18 14:00 INR 1.15 01/05/18 14:00 APTT 30.0 Seconds (25.1-36.5) 01/05/18 14:00 - Constitutional Appears: Non-toxic, No Acute Distress - Head Exam Head Exam: ATRAUMATIC, NORMOCEPHALIC - Eye Exam Eye Exam: EOMI, PERRL, Scleral icterus Pupil Exam: PERRL. absent: Miosis, Mydriatic - ENT Exam ENT Exam: Mucous Membranes Moist, Normal Oropharynx - Neck Exam Neck Exam: Full ROM, Normal Inspection - Respiratory Exam Respiratory Exam: Clear to Ausculation Bilateral. absent: Rales, Rhonchi, Wheezes - Cardiovascular Exam Cardiovascular Exam: RRR, +S1, +S2. absent: Gallop, Rubs - GI/Abdominal Exam GI & Abdominal Exam: Soft, Normal Bowel Sounds. absent: Distended, Firm, Guarding, Rigid, Tenderness, Organomegaly, Rebound - Extremities Exam Extremities Exam: Normal Inspection. 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 Patient reports recent completion of cipro/flagyl for Cdiff diarrhea. Active treatment of co njugated hyperbilirubinemia due to obstructive jaundice. Plan: -DDx- cholangiocarcinoma, pancreatic carcinoma -MRCP and abdomen-central/extrahepatic dilatation and abrupt distal CBD cut-off concerning for a mass lesion -follow up final read of CT pancreas protocol -CA [id number] [id number] -schedule for EGD/EUS/ERCP tomorrow, Wednesday -low fat diet today, NPO after midnight -further recommendations after endoscopic procedures <Yanely Rubio V - Last Filed: 01/06/18 23:20> Objective - Vital Signs/Intake and Output Vital Signs (last 24 hours): Temp Pulse Resp BP Pulse Ox 98.1 F 61 20 105/55 L 100 01/06/18 14:00 01/06/18 14:00 01/06/18 14:00 01/06/18 14:00 01/06/18 14:00 Intake and Output: 01/06/18 01/07/18 18:59 06:59 Intake Total 480 Balance 480 - Medications Medications: Current Medications Finasteride (Proscar) 5 mg PO DAILY [facility] Last Admin: 01/06/18 12:47 Dose: 5 mg Sodium Chloride (Sodium Chloride 0.45%) 1,000 mls @ 100 mls/hr IV .Q10H [facility] Last Admin: 01/06/18 01:47 Dose: 100 mls/hr Insulin Human Lispro (Humalog High) 0 units SC ACHS [facility]; Protocol Last Admin: 01/06/18 18:48 Dose: Not Given Lisinopril (Zestril) 2.5 mg PO DAILY [facility] Last Admin: 01/06/18 12:47 Dose: 2.5 mg - Labs Labs: 01/05/18 06:40 01/06/18 07:30 PT 13.1 SECONDS (9.4-12.5) H 01/05/18 14:00 INR 1.15 01/05/18 14:00 APTT 30.0 Seconds (25.1-36.5) 01/05/18 14:00 Attending/Attestation - Attestation I have personally seen and examined this patient.: Yes I have fully participated in the care of the patient.: Yes I have reviewed all pertinent clinical information, including history, physical exam and plan: Yes Notes (Text): This is an addendum to GI progress report dictated by the GI Fellow.The patient was seen and examined earlier. Medical records, lab studies, imagings were reviewed. Last 24 hours events reviewed. Agreed with the above treatment plan as outlined in GI Fellow 's notes with the addition of the following Discussed with the patient at length Obstructive jaundice Elevated total bilirubin, LFTs On exam abdomen soft nontender ,jaundiced scheduled for EUS/ERCP tomorrow 01/06/18 23:16
--- NOTE | 2018-01-06 15:10 | CT ---
Date of service: 01/05/2018 PROCEDURE: CT Abdomen and Pelvis with and without intravenous contrast HISTORY: hyperbilirubinemia, concern for obstruction COMPARISON: 01/04/2018 MRI TECHNIQUE: Axial images of the abdomen were obtained in the pre contrast, portal venous and delayed phases of enhancement. Coronal and sagittal reformats were generated. Contrast dose: 150 cc of Omni 350 Radiation dose: Total exam DLP = 2610.88 mGy-cm. This CT exam was performed using one or more of the following dose reduction techniques: Automated exposure control, adjustment of the mA and/or kV according to patient size, and/or use of iterative reconstruction technique. FINDINGS: LOWER THORAX: Unremarkable. LIVER: Unremarkable. No gross lesion or ductal dilatation. GALLBLADDER AND BILE DUCTS: Gallbladder is mildly distended. There is a small gallstone in the fundus PANCREAS: There is a poorly defined lesion in the body of the pancreas suspicious for malignancy. This appears to encase the splenic vein. This is best visualized on image 44 of series 7 where it measures 22 x 46 mm. There is also atrophy of the pancreatic tail and ductal dilatation consistent with obstruction at this site. This lesion does not explain the finding of intrahepatic and common duct dilatation seen on MRCP. The pancreatic head is unremarkable SPLEEN: Unremarkable. ADRENALS: Unremarkable. No mass. KIDNEYS AND URETERS: Unremarkable. No hydronephrosis. No solid mass. VASCULATURE: Unremarkable. No aortic aneurysm. No aortic atherosclerotic calcification or mural plaque present. BOWEL: Unremarkable. No obstruction. No gross mural thickening. APPENDIX: Normal appendix. PERITONEUM: Unremarkable. No free fluid. No free air. LYMPH NODES: Unremarkable. No enlarged lymph nodes. BLADDER: Unremarkable. REPRODUCTIVE: Unremarkable. BONES: No acute fracture. OTHER FINDINGS: None. IMPRESSION: Poorly defined infiltrating lesion in the pancreatic body which encases the splenic vein and obstructs the pancreatic duct in the tail of the pancreas. There are no lesions in the pancreatic head to correlate with the ductal dilatation seen on MRCP
--- NOTE | 2018-01-06 20:15 | PN ---
DATE: 01/06/2018 SUBJECTIVE: The patient is 72 years old, seen and examined, very anxious, wants to have ERCP done today. He is anxious to go home also because his is sick and is on hospice. PHYSICAL EXAMINATION: GENERAL: Today, he is awake, alert, oriented. Communicative, ambulatory. VITAL SIGNS: He is afebrile, pulse 61, respirations 20, blood pressure 105/55. LUNGS: Bilateral fair airflow. No rhonchi or crackle. HEART: S1 and S2 audible. ABDOMEN: Soft, obese, nontender. No rebound. No guarding. NEUROLOGIC: The patient is awake, alert, and oriented. Communicative. LABORATORY EXAMINATION: Sodium 139, potassium 4.4, chloride 106, CO2 of 25, BUN 7, creatinine 0.9, blood sugar 222. Total bili is 19.7, AST 129, ALT 76, alkaline phosphatase 566. CT scan of the pancreas shows poorly defined infiltrate and lesion in the pancreatic body which enhances splenic vein and obstructs the pancreatic duct in the tail of the pancreas. No lesion in the pancreatic head. ASSESSMENT AND PLAN: 1. Obstructive jaundice. 2. Pancreatic lesion. 3. Hypertension. 4. Uik-owtlrby-jembhndfr diabetes. 5. Recently treated Clostridium difficile colitis. So, plan is we will continue the patient on current medications. We will follow up his liver function tests. He is scheduled for endoscopic retrograde cholangiopancreatography, possible endoscopic retrograde cholangiopancreatography and endoscopic ultrasonography tomorrow. Derrick Rodríguez MD
[2018-01-07] MEDS: Insulin Lispro (HUMAlog) HIGH Coverage SC SCH ×3 (05:40→11:36)
[2018-01-07 07:28] LABS: BASO # 0.08 K/mm3 (0.0-2.0); BASO % 1.6 % (0.0-3.0); EOS # 0.2 (0.0-0.7); EOS % 4.8 % (1.5-5.0); GRAN # 2.76 (1.4-6.5); GRAN % 55.8 % (50.0-68.0); LYMPH # 1.4 (1.2-3.4); LYMPH % 28.5 % (22.0-35.0); MEAN CELL VOLUME 89.9 fl (80.0-105.0); MEAN CORPUSCULAR HEMOGLOBIN 28.8 pg (25.0-35.0); MEAN CORPUSCULAR HGB CONC 32.1 g/dl (31.0-37.0); MONO # 0.5 (0.1-0.6); MONO % 9.3 % (1.0-6.0); RBC 3.47 10^6/uL (3.5-6.1); RED CELL DISTRIBUTION WIDTH 19.1 % (11.5-14.5)
[2018-01-07 07:31] LABS: INR 1.15; PROTHROMBIN TIME 13.3 SECONDS (9.4-12.5)
--- NOTE | 2018-01-07 11:25 | PN ---
DATE: 01/07/2018 SUBJECTIVE: I reviewed the progress notes and different reports for Mr. Talavera up to yesterday evening. Patient is a 72-year-old white male admitted with complaints of abdominal pain, rapid onset of jaundice over a short time period as well as some nausea. The patient has been evaluated to date including gallbladder ultrasound, MRCP, pancreatic CT as well. Again, as indicated in my note, reviewed the pancreatic CT images yesterday morning which were further clarified by the radiologist later on yesterday, who indicated a "poorly defined lesion" in the body of pancreas, which appears to be encasing the splenic vein. Also some degree of pancreatic duct obstruction notedc . Also, intrahepatic and common bile duct dilation, which is seen on MRCP. I reviewed the consultation of Dr. Rubio as well as notes from Dr. Rodríguez. The last bilirubin was in the range of 19; however, the CA19-9 is in the range of 3570 which pretends a poor prognosis. Going through reports and the chart, the patient is scheduled for EUS/ERCP today to clarify the issue of the pancreatic lesion and reason for the biliary duct abnormalities. The patient is going to be followed by Dr. Rubio. I will sign off the case as of today. Mushtaq Cordoba DO, PhD MTDJaylene
[2018-01-07] MEDS ORDERED: Iohexol 240 (50 ml) ONE (13:55)
[2018-01-07] MEDS ORDERED: Glucagon Recombinant 1 mg Inj ONE (13:55)
[2018-01-07] MEDS ORDERED: Indomethacin 50 MG Suppository PR ONE (13:58)
[2018-01-07] MEDS ORDERED: Etomidate 20 mg/10ml Inj IV ONE (15:02)
[2018-01-07] MEDS ORDERED: Lidocaine 1% Inj (20ml) ONE (15:02)
[2018-01-07] MEDS ORDERED: Succinylcholine 200 mg/10 ml Inj IV ONE (15:03)
[2018-01-07] MEDS ORDERED: Rocuronium 10 mg/ml (5 ml) ONE ×2 (15:03→17:00)
[2018-01-07] MEDS ORDERED: cefTRIAXone 1 gm 1 GM/100 ML BAG IVPB ONE (15:43)
[2018-01-07] MEDS ORDERED: cefTRIAXone (Rocephin) 1 gm Inj ONE (15:52)
[2018-01-07] MEDS ORDERED: ePHEDrine 50 mg/ml Inj ONE (16:15)
[2018-01-07] MEDS ORDERED: Neostigmine Methylsulfate 3mg/3ml Syringe IV ONE (18:09)
--- NOTE | 2018-01-07 20:08 | CARD ---
APPROVED REPORT Date of service: 01/07/2018 EKG Measurement Heart [id number] <Conclusion> Marked sinus bradycardia Abnormal ECG
--- NOTE | 2018-01-07 20:21 | DS ---
HISTORY OF PRESENT ILLNESS: The patient is a 72-year-old, seen and examined, sitting in chair, seems to be comfortable, and scheduled for ERCP today. PHYSICAL EXAMINATION: VITAL SIGNS: He is afebrile, pulse 59, respirations 20, and blood pressure 112/64. LUNGS: Bilateral fair airflow. No rhonchi or crackles. HEART: S1 and S2 audible. ABDOMEN: Soft, obese, and nontender. No rebound. No guarding. NEUROLOGIC: The patient is awake and alert, able to communicate. LABORATORY DATA: WBC is 5, hemoglobin 10, hematocrit 31.2, and platelets of 164. Chemistry: Blood sugar is 176 and magnesium 1.8. ASSESSMENT: 1. Obstructive jaundice. 2. Poorly defined lesion in pancreatic tail with common bile duct dilatation. 3. Hypertension. 4. Hnj-kcynfbz-yoeztekou diabetes with . PLAN: The patient will go for ERCP, will have stent placed, and will be monitored as outpatient for EUS and possible biopsy. Since the patient's is very sick, she is on hospice, he wants to go home today and will be discharged after procedure. Derrick Rodríguez MD
[2018-01-08] MEDS ORDERED: Pantoprazole 40 mg EC Tab PO SCH (06:00)
[2018-01-08] MEDS: Insulin Lispro (HUMAlog) HIGH Coverage SC SCH ×4 (08:00→21:46)
[2018-01-08 08:55] LABS: INR 1.18; PARTIAL THROMBOPLASTIN TIME 26.2 Seconds (25.1-36.5); PROTHROMBIN TIME 13.6 SECONDS (9.4-12.5)
[2018-01-08 09:06] LABS: ALBUMIN 3.3 g/dL (3.0-4.8); ALT/SGPT 62 U/L (7-56); AMYLASE 292 U/L (35-125); AST/SGOT 87 U/L (17-59); BLOOD UREA NITROGEN 12 mg/dL (7-21); CALCIUM 9.1 mg/dL (8.4-10.5); GFR NON-AFRICAN AMERICAN > 60
[2018-01-08 09:15] LABS: WHITE BLOOD COUNT 4.1 10^3/uL (4.5-11.0)
[2018-01-08 09:16] LABS: BASO # 0.06 K/mm3 (0.0-2.0); BASO % 1.5 % (0.0-3.0); EOS # 0.1 (0.0-0.7); EOS % 2.4 % (1.5-5.0); GRAN # 2.69 (1.4-6.5); GRAN % 65.6 % (50.0-68.0); HEMOGLOBIN 9.5 g/dL (14.0-18.0); LYMPH # 0.8 (1.2-3.4); LYMPH % 19.5 % (22.0-35.0); MEAN CELL VOLUME 88.7 fl (80.0-105.0); MEAN CORPUSCULAR HEMOGLOBIN 29.8 pg (25.0-35.0); MEAN CORPUSCULAR HGB CONC 33.6 g/dl (31.0-37.0); MONO # 0.5 (0.1-0.6); PLATELET COUNT 134 10^3/uL (120.0-450.0); RBC 3.19 10^6/uL (3.5-6.1); RED CELL DISTRIBUTION WIDTH 22.6 % (11.5-14.5)
[2018-01-08] MEDS: Sodium Chloride 0.45% 1,000 ML IV SCH (12:20)
--- NOTE | 2018-01-08 12:36 | DS ---
HISTORY OF PRESENT ILLNESS: The patient is a 72-year-old, seen and examined, very anxious, had endoscopy, ERCP done, was found to have swollen duodenal mucosa, unable to pass the probe and plan is to do percutaneous stent placement on Wednesday. The patient was seen and examined. He is anxious to go home. PHYSICAL EXAMINATION: VITAL SIGNS: The patient is afebrile, pulse 59, respirations 20, blood pressure 114/57. LUNGS: Bilateral fair airflow. No rhonchi or crackle. HEART: S1, S2 audible. ABDOMEN: Soft, nontender. No rebound, no guarding. NEUROLOGIC: The patient is awake, alert, oriented. Communicative. Ambulatory. LABORATORY DATA: WBC 4.1, hemoglobin 9.5, hematocrit 28.3, platelets of 134. Chemistry; sodium 135, potassium 3.6, chloride 104, CO2 of 21, BUN 12, creatinine 1.0, blood sugar 255. Total bili 21.5, AST 87, ALT 62. Urine cultures are negative. ASSESSMENT: 1. Obstructive jaundice. 2. Duodenal bulb ulcer. 3. Hypertension. 4. Hyperlipidemia. PLAN: So, plan is the patient wants to go home, but he is waiting for Dr. Rubio and his family is by the bedside. They want to take him to [place]. We will wait until he see Dr. Rubio. After that, he will be discharged. If he wish to come here, he can be re-admitted on Wednesday for the procedure. He wants to go home today because his is sick and she is on hospice care. We will follow him up as outpatient. Derrick Rodríguez MD
--- NOTE | 2018-01-08 14:13 | RAD ---
Date of service: 01/07/2018 PROCEDURE: Intraoperative Fluoroscopy. HISTORY: ? CBD OBST / ATTEMPTED ERCP FINDINGS: Fluoroscopic assistance was provided. Fluoroscopy time = 125 sec. Radiation dose = 54.1 mGy. Please refer to the operative report from DONNY Ramirez.
--- NOTE | 2018-01-08 14:16 | RAD ---
Date of service: 01/07/2018 HISTORY: Preoperative assessment COMPARISON: No prior. FINDINGS: LUNGS: No active pulmonary disease. PLEURA: No significant pleural effusion identified, no pneumothorax apparent. CARDIOVASCULAR: Minor aortic atherosclerotic calcification present. Borderline/mild cardiomegaly. No pulmonary vascular congestion. OSSEOUS STRUCTURES: No significant abnormalities. VISUALIZED UPPER ABDOMEN: Normal. OTHER FINDINGS: None. IMPRESSION: No active disease.
--- NOTE | 2018-01-08 16:30 | CP.PCM.PN ---
<Petar Rios - Last Filed: 01/08/18 16:33> Subjective - Date & Time of Evaluation Date of Evaluation: 01/08/18 Time of Evaluation: 13:00 - Subjective Subjective: PGY-4 GI Fellow Prog Note Pt sitting up in bed, family at bedside. States that he is doing OK today, some abd bloating but tolerating diet. Denied any f/c, abd pain or SOB. 5 point ROS negative other than stated above Objective - Vital Signs/Intake and Output Vital Signs (last 24 hours): Temp Pulse Resp BP Pulse Ox 97.9 F 64 20 125/68 98 01/08/18 14:38 01/08/18 14:38 01/08/18 14:38 01/08/18 14:38 01/08/18 14:38 Intake and Output: 01/08/18 01/08/18 06:59 18:59 Output Total 400 Balance -400 - Medications Medications: Current Medications Finasteride (Proscar) 5 mg PO DAILY [facility] Last Admin: 01/08/18 09:58 Dose: 5 mg Sodium Chloride (Sodium Chloride 0.45%) 1,000 mls @ 100 mls/hr IV .Q10H [facility] Last Admin: 01/08/18 12:20 Dose: 100 mls/hr Insulin Human Lispro (Humalog High) 0 units SC ACHS [facility]; Protocol Last Admin: 01/08/18 12:22 Dose: 2 units Lisinopril (Zestril) 2.5 mg PO DAILY [facility] Last Admin: 01/08/18 09:58 Dose: 2.5 mg - Labs Labs: 01/08/18 08:30 01/08/18 08:30 PT 13.6 SECONDS (9.4-12.5) H 01/08/18 08:30 INR 1.18 01/08/18 08:30 APTT 26.2 Seconds (25.1-36.5) 01/08/18 08:30 - Constitutional Appears: No Acute Distress, Other (Jaundiced) - Head Exam Head Exam: ATRAUMATIC, NORMAL INSPECTION - Eye Exam Eye Exam: EOMI, Scleral icterus - ENT Exam ENT Exam: Mucous Membranes Moist. absent: Mucous Membranes Dry - GI/Abdominal Exam GI & Abdominal Exam: Distended (mildly), Soft, Normal Bowel Sounds. absent: Bruit, Firm, Guarding, Rigid, Tenderness, Mass, Organomegaly, Pulsatile Mass Assessment and Plan - Assessment and Plan (Free Text) Assessment: 72 year old male with PMH of HTN, HLD, and Diabetes (10-15 years, 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 Patient reports recent completion of cipro/flagyl for Cdiff diarrhea. Active treatment of conjugated hyperbilirubinemia due to obstructive jaundice. Concern for biliary vs pancreatic malignancy. However, after further review with radiology, pancreas appear more "hazzy" to suggest pancreatitis and no focal mass identified for biopsy. Perhaps related to biliary primary malignancy vs pancreatitis complication? Plan: -MRCP and abdomen-central/extrahepatic dilatation and abrupt distal CBD cut-off concerning for a mass lesion. Possible Splenic Vein Thrombosis seen on imaging; hold off on any anticoagulation in light of planned procedure and duodenal ulcer seen on CT -CA 19-9 3570 -Failed ERCP/EUS on 01/07 -Plan for PTC with Dr. Moe on 01/10 -FC IIc duodenal ulcer seen on endoscopy 01/07 -> PPI -Low fat diet today, NPO after midnight on Wednesday night Pt seen and examined with Dr. Rubio <Yanely Rubio V - Last Filed: 01/08/18 17:21> Objective - Vital Signs/Intake and Output Vital Signs (last 24 hours): Temp Pulse Resp BP Pulse Ox 97.9 F 64 20 125/68 98 01/08/18 14:38 01/08/18 14:38 01/08/18 14:38 01/08/18 14:38 01/08/18 14:38 Intake and Output: 01/08/18 01/08/18 06:59 18:59 Output Total 400 Balance -400 - Medications Medications: Current Medications Finasteride (Proscar) 5 mg PO DAILY [facility] Last Admin: 01/08/18 09:58 Dose: 5 mg Sodium Chloride (Sodium Chloride 0.45%) 1,000 mls @ 100 mls/hr IV .Q10H [facility] Last Admin: 01/08/18 12:20 Dose: 100 mls/hr Insulin Human Lispro (Humalog High) 0 units SC ACHS [facility]; Protocol Last Admin: 01/08/18 17:04 Dose: 7 units Lisinopril (Zestril) 2.5 mg PO DAILY [facility] Last Admin: 01/08/18 09:58 Dose: 2.5 mg Pantoprazole Sodium (Protonix Ec Tab) 40 mg PO 0600 [facility] Last Admin: 01/08/18 17:08 Dose: 40 mg - Labs Labs: 01/08/18 08:30 01/08/18 08:30 PT 13.6 SECONDS (9.4-12.5) H 01/08/18 08:30 INR 1.18 01/08/18 08:30 APTT 26.2 Seconds (25.1-36.5) 01/08/18 08:30 Attending/Attestation - Attestation I have personally seen and examined this patient.: Yes I have fully participated in the care of the patient.: Yes I have reviewed all pertinent clinical information, including history, physical exam and plan: Yes Notes (Text): This is an addendum to GI progress report dictated by the GI Fellow. The patient was seen and examined earlier. Medical records, lab studies, imagings were reviewed. Last 24 hours events reviewed. Agreed with the above treatment plan as outlined in GI Fellow 's notes with the addition of the following I had a detailed a discussion with patient and patient's family, who were at bedside. Attempted ERCP, EUS, previous imaging studies were discussed with patient and patient's family. Patient has a complex obstructive jaundice presentation. Pt has abrupt narrowing of the CBD just below the cystic duct takeoff in the MRCP. No obvious mass could be identified in the CBD area. There was significant haziness in the pancreatic border, and abnormalities of the pancreatic body noticed. There was discontinuity of the splenic vein course was noticed. Radiologically more in favor of possible pancreatitis. However, neoplasia as a differential diagnosis. The radiology studies were reviewed by Dr.Peter Moe, interventional radiologist. No discrete lesion biopsiable at this time. However, The imaging studies were worrisome for pancreatic neoplasia in view of the painless jaundice and elevated CA19-9. Options of referring to tertiary care for advance ERCP procedure attempt, and option of PTC on Wednesday in [place] were discussed at length. Pt and family prefers to have PTC and drainage option here in [place] on Wednesday rather than transferring to tertiary care center. Pt also has very deformed stomach and large duodenal ulcer. Continue PPI. Follow-up gastric biopsy taken. Discussed with Dr.Marcos cortes. 01/08/18 17:11
[2018-01-08] MEDS: Pantoprazole 40 mg EC Tab PO SCH (17:08)
[2018-01-09] MEDS: Pantoprazole 40 mg EC Tab PO SCH (05:53)
[2018-01-09] MEDS: Insulin Lispro (HUMAlog) HIGH Coverage SC SCH ×4 (08:14→22:04)
[2018-01-09] MEDS ORDERED: Sodium Chloride 0.45% 1,000 ML IV SCH (09:50)
[2018-01-09 11:12] LABS: ALBUMIN 3.3 g/dL (3.0-4.8); ALT/SGPT 52 U/L (7-56); AMYLASE 77 U/L (35-125); AST/SGOT 84 U/L (17-59); BLOOD UREA NITROGEN 8 mg/dL (7-21); CALCIUM 9.1 mg/dL (8.4-10.5); GFR NON-AFRICAN AMERICAN > 60
[2018-01-09 11:21] LABS: HEMOGLOBIN 9.4 g/dL (14.0-18.0); MEAN CELL VOLUME 90.1 fl (80.0-105.0); MEAN CORPUSCULAR HEMOGLOBIN 29.1 pg (25.0-35.0); MEAN CORPUSCULAR HGB CONC 32.3 g/dl (31.0-37.0); PLATELET COUNT 172 10^3/uL (120.0-450.0); RBC 3.23 10^6/uL (3.5-6.1); RED CELL DISTRIBUTION WIDTH 19.9 % (11.5-14.5); WHITE BLOOD COUNT 4.4 10^3/uL (4.5-11.0)
[2018-01-09 11:22] LABS: INR 1.21
--- NOTE | 2018-01-09 12:37 | CP.PCM.PN ---
<Petar Rios - Last Filed: 01/09/18 12:33> Subjective - Date & Time of Evaluation Date of Evaluation: 01/09/18 Time of Evaluation: 08:30 - Subjective Subjective: PGY-4 GI Fellow Prog Note Pt sleeping in bed when seen this AM. States he is doing well. Denied abd pain and is tolerating diet. 5 point ROS negative other than stated above Objective - Vital Signs/Intake and Output Vital Signs (last 24 hours): Temp Pulse Resp BP Pulse Ox 97.5 F L 56 L 20 115/62 97 01/09/18 07:00 01/09/18 07:00 01/09/18 07:00 01/09/18 07:00 01/09/18 07:00 Intake and Output: 01/09/18 01/09/18 06:59 18:59 Output Total 400 Balance -400 - Medications Medications: Current Medications Finasteride (Proscar) 5 mg PO DAILY [facility] Last Admin: 01/09/18 09:19 Dose: 5 mg Sodium Chloride (Sodium Chloride 0.45%) 1,000 mls @ 50 mls/hr IV .Q20H [facility] Insulin Human Lispro (Humalog High) 0 units SC ACHS [facility]; Protocol Last Admin: 01/09/18 11:26 Dose: 4 units Lisinopril (Zestril) 2.5 mg PO DAILY [facility] Last Admin: 01/09/18 09:19 Dose: 2.5 mg Pantoprazole Sodium (Protonix Ec Tab) 40 mg PO 0600 [facility] Last Admin: 01/09/18 05:53 Dose: 40 mg - Labs Labs: 01/09/18 10:50 01/09/18 10:50 PT 14.0 SECONDS (9.4-12.5) H 01/09/18 10:50 INR 1.21 01/09/18 10:50 APTT 26.2 Seconds (25.1-36.5) 01/08/18 08:30 - Constitutional Appears: No Acute Distress, Other (Jaundiced) - Head Exam Head Exam: ATRAUMATIC, NORMAL INSPECTION - Eye Exam Eye Exam: EOMI, Scleral icterus - ENT Exam ENT Exam: Mucous Membranes Moist. absent: Mucous Membranes Dry - GI/Abdominal Exam GI & Abdominal Exam: Distended (mildly), Soft, Normal Bowel Sounds. absent: Bruit, Firm, Guarding, Rigid, Tenderness, Mass, Organomegaly, Pulsatile Mass Assessment and Plan - Assessment and Plan (Free Text) Assessment: 72 year old male with PMH of HTN, HLD, and Diabetes (10-15 years, 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 Patient reports recent completion of cipro/flagyl for Cdiff diarrhea. Active treatment of conjugated hyperbilirubinemia due to obstructive jaundice. Concern for biliary vs pancreatic malignancy. However, after further review with radiology, pancreas appear more "hazzy" to suggest pancreatitis and no focal mass identified for biopsy. Perhaps related to biliary primary malignancy vs pancreatitis complication? Plan: -MRCP and abdomen-central/extrahepatic dilatation and abrupt distal CBD cut-off concerning for a mass lesion. Possible Splenic Vein Thrombosis seen on imaging; hold off on any anticoagulation in light of planned procedure and duodenal ulcer seen on CT -CA 19-9 3570 -Failed ERCP/EUS on 01/07 -Plan for PTC with Dr. Moe on 01/10 -FC IIc duodenal ulcer seen on endoscopy 01/07 -> PPI -Low fat diet, NPO after midnight on tonight -Monitor labs Pt discussed with Dr. Ramiro Rios, PGY-4 <Yanely Rubio V - Last Filed: 01/09/18 19:13> Objective - Vital Signs/Intake and Output Vital Signs (last 24 hours): Temp Pulse Resp BP Pulse Ox 97.5 F L 56 L 20 115/62 97 01/09/18 07:00 01/09/18 07:00 01/09/18 07:00 01/09/18 07:00 01/09/18 07:00 Intake and Output: 01/09/18 01/09/18 06:59 18:59 Output Total 400 Balance -400 - Medications Medications: Current Medications Finasteride (Proscar) 5 mg PO DAILY [facility] Last Admin: 01/09/18 09:19 Dose: 5 mg Sodium Chloride (Sodium Chloride 0.45%) 1,000 mls @ 50 mls/hr IV .Q20H [facility] Insulin Human Lispro (Humalog High) 0 units SC ACHS [facility]; Protocol Last Admin: 01/09/18 11:26 Dose: 4 units Lisinopril (Zestril) 2.5 mg PO DAILY [facility] Last Admin: 01/09/18 09:19 Dose: 2.5 mg Pantoprazole Sodium (Protonix Ec Tab) 40 mg PO 0600 [facility] Last Admin: 01/09/18 05:53 Dose: 40 mg - Labs Labs: 01/09/18 10:50 01/09/18 10:50 PT 14.0 SECONDS (9.4-12.5) H 01/09/18 10:50 INR 1.21 01/09/18 10:50 APTT 26.2 Seconds (25.1-36.5) 01/08/18 08:30 Attending/Attestation - Attestation I have personally seen and examined this patient.: Yes I have fully participated in the care of the patient.: Yes I have reviewed all pertinent clinical information, including history, physical exam and plan: Yes Notes (Text): This is an addendum to GI followup report dictated by the GI Fellow. The patient was seen and evaluated earlier. Medical records, lab studies, imagings were reviewed. Last 24 hours events reviewed. Agreed with the above treatment plan as outlined in GI Fellow's notes with the addition of the following Patient's bilirubin is 20.7. Amylase normal. On examination patient is deeply jaundiced, no abdominal tenderness. Obstructive jaundice with pancreatic abnormalities in the body. There is a sharp caliber change of the CBD just below the cystic duct take off. Pancreatic body ill defined in imaging studies with probable discontinuity of the splenic vein course suggestive of ?tumor. Patient has gallstones and h/o abdominal discomfort 10days prior No abdominal pain now Gall stone pancreatitis is another DD Significantly Elevated CA19-9 Failed selective cannulation of CBD by ERCP. Deformed angulated antrum and body lumen Large DU Options given to the patient and family regarding transfer to tertiary center vs. PTC in [place]. Patient and family Preferred PTC in [place]. Scheduled for procedure tomorrow by Dr.Peter Moe. Would need repeat CT in few days for biopsy vs. repeat EUS in few days Followup gastric biopsy . 01/09/18 15:04 01/09/18 19:06
--- NOTE | 2018-01-09 15:19 | PN ---
DATE: 01/09/2018 SUBJECTIVE: The patient has no complaints of any chest pain, no shortness breath, no headaches. OBJECTIVE: VITAL SIGNS: Temperature is 97.5, pulse of 56, blood pressure 115/62, respirations 20. LABORATORY DATA: White count of 4.1, hemoglobin 9.5, creatinine is 1. ASSESSMENT: 1. Obstructive jaundice. 2. Duodenal ulcer. 3. Hypertension. 4. Dyslipidemia. PLAN: The patient is currently on IV fluids. I would decrease the patient's IV fluids. He is on Proscar for his BPH. He is on Protonix daily. He is on lisinopril for hypertension. The patient is waiting to possibly go to [place] for discharge. Tin Duarte MD
[2018-01-10] MEDS: Pantoprazole 40 mg EC Tab PO SCH (05:52)
[2018-01-10] MEDS: Insulin Lispro (HUMAlog) HIGH Coverage SC SCH ×5 (08:57→22:54)
[2018-01-10 09:51] LABS: HEMOGLOBIN 10.2 g/dL (14.0-18.0); MEAN CELL VOLUME 90.1 fl (80.0-105.0); MEAN CORPUSCULAR HEMOGLOBIN 28.7 pg (25.0-35.0); MEAN CORPUSCULAR HGB CONC 31.9 g/dl (31.0-37.0); PLATELET COUNT 179 10^3/uL (120.0-450.0); RBC 3.55 10^6/uL (3.5-6.1); RED CELL DISTRIBUTION WIDTH 20.3 % (11.5-14.5)
[2018-01-10 09:55] LABS: INR 1.18; PROTHROMBIN TIME 13.6 SECONDS (9.4-12.5)
[2018-01-10 10:11] LABS: ALBUMIN 3.7 g/dL (3.0-4.8); ALT/SGPT 50 U/L (7-56); AST/SGOT 84 U/L (17-59); BLOOD UREA NITROGEN 7 mg/dL (7-21); CALCIUM 9.4 mg/dL (8.4-10.5); GFR NON-AFRICAN AMERICAN > 60
--- NOTE | 2018-01-10 11:53 | CP.PCM.PN ---
<Jovany Inman - Last Filed: 01/10/18 19:03> Subjective - Date & Time of Evaluation Date of Evaluation: 01/10/18 Time of Evaluation: 09:00 - Subjective Subjective: PGY6 GI Fellow Progress Note Patient seen and examined bedside this morning. The patient denies any complaints at this time. Notes that he is scheduled for PTC today. No events overnight. 12 system ROS performed and negative except where stated Objective - Vital Signs/Intake and Output Vital Signs (last 24 hours): Temp Pulse Resp BP Pulse Ox 98.6 F 62 20 100/63 99 01/10/18 06:00 01/10/18 10:11 01/10/18 06:00 01/10/18 10:11 01/10/18 06:00 Intake and Output: 01/10/18 01/10/18 06:59 18:59 Intake Total 620 Output Total 800 Balance -180 - Medications Medications: Current Medications Finasteride (Proscar) 5 mg PO DAILY [facility] Last Admin: 01/10/18 09:46 Dose: 5 mg Sodium Chloride (Sodium Chloride 0.45%) 1,000 mls @ 50 mls/hr IV .Q20H [facility] Last Admin: 01/09/18 16:22 Dose: 50 mls/hr Insulin Human Lispro (Humalog High) 0 units SC ACHS [facility]; Protocol Last Admin: 01/10/18 08:57 Dose: Not Given Lisinopril (Zestril) 2.5 mg PO DAILY [facility] Last Admin: 01/10/18 10:11 Dose: Not Given Pantoprazole Sodium (Protonix Ec Tab) 40 mg PO 0600 [facility] Last Admin: 01/10/18 05:52 Dose: Not Given - Labs Labs: 01/10/18 09:00 01/10/18 09:00 PT 13.6 SECONDS (9.4-12.5) H 01/10/18 09:00 INR 1.18 01/10/18 09:00 APTT 26.2 Seconds (25.1-36.5) 01/08/18 08:30 - Constitutional Appears: No Acute Distress, Chronically Ill - Eye Exam Eye Exam: EOMI, PERRL, Scleral icterus - ENT Exam ENT Exam: Mucous Membranes Moist - Respiratory Exam Respiratory Exam: Clear to Ausculation Bilateral. absent: Rales, Rhonchi, Wheezes - Cardiovascular Exam Cardiovascular Exam: RRR, +S1, +S2 - GI/Abdominal Exam GI & Abdominal Exam: Soft, Normal Bowel Sounds. absent: Distended, Firm, Guarding, Rigid, Tenderness, Organomegaly - Extremities Exam Extremities Exam: Normal Inspection. absent: Pedal Edema - Neurological Exam Neurological Exam: Alert, Awake, Oriented x3 - Psychiatric Exam Psychiatric exam: Normal Affect, Normal Mood - Skin Skin Exam: Dry, Warm Additional comments: jaundice Assessment and Plan - Assessment and Plan (Free Text) Assessment: Patient is a 72yo male with PMHx significant for HTN, hyperlipidemia, diabetes and recent C diff colitis s/p outpatient antibiotic therapy who presented with painless jaundice. -Painless jaundice with dilated central/extrahepatic bile ducts on imaging - concern for occult malignancy (pancreatic, cholangiocarcinoma) -Pancreatic lesion on CT - concern for malignancy - -Gallstones R/O obstructive calculus -Duodenal ulcer Plan: -Imaging reviewed with abnormal CT/MRI and U/S with gallstones -Given clinical picture, concern for underlying malignancy whether pancreatic or cholangio -Plan for PTC today with IR -Will benefit from repeat EUS/ERCP and may consider evaluation at tertiary center which offers cholangioscopy (was offered to patient and he refused) -Elevated tumor marker in setting of obstruction - unclear importance -Continue PPI therapy -Diet as tolerated -Monitor clinical course <Yanely Rubio V - Last Filed: 01/11/18 22:33> Objective - Vital Signs/Intake and Output Vital Signs (last 24 hours): Temp Pulse Resp BP Pulse Ox 97.9 F 62 18 117/57 L 96 01/11/18 22:16 01/11/18 22:16 01/11/18 22:16 01/11/18 22:16 01/11/18 22:16 Intake and Output: 01/11/18 01/12/18 18:59 06:59 Intake Total 240 Output Total 100 Balance 140 - Medications Medications: Current Medications Acetaminophen (Tylenol 325mg Tab) 650 mg PO Q4 PRN PRN Reason: Pain, Mild (1-3) Finasteride (Proscar) 5 mg PO DAILY [facility] Last Admin: 01/11/18 10:17 Dose: 5 mg Hydromorphone HCl (Dilaudid) 2 mg IVP Q4H PRN PRN Reason: Pain, severe (8-10) Last Admin: 01/11/18 20:22 Dose: 2 mg Insulin Human Lispro (Humalog High) 0 units SC ACHS [facility]; Protocol Last Admin: 01/11/18 18:44 Dose: Not Given Lisinopril (Zestril) 2.5 mg PO DAILY [facility] Last Admin: 01/11/18 10:17 Dose: 2.5 mg Ondansetron HCl (Zofran Inj) 4 mg IVP Q6H PRN PRN Reason: Nausea/Vomiting Oxycodone/Acetaminophen (Percocet 5/325 Mg Tab) 1 tab PO Q4H PRN PRN Reason: Pain, moderate (4-7) Stop: 01/13/18 13:34 Last Admin: 01/11/18 09:53 Dose: 1 tab Pantoprazole Sodium (Protonix Ec Tab) 40 mg PO 0600 [facility] Last Admin: 01/11/18 05:30 Dose: 40 mg - Labs Labs: 01/11/18 08:15 01/11/18 08:15 PT 13.9 SECONDS (9.4-12.5) H 01/11/18 08:15 INR 1.20 01/11/18 08:15 APTT 26.2 Seconds (25.1-36.5) 01/08/18 08:30 Attending/Attestation - Attestation I have personally seen and examined this patient.: Yes I have fully participated in the care of the patient.: Yes I have reviewed all pertinent clinical information, including history, physical exam and plan: Yes Notes (Text): This is an addendum to GI progress report dictated by the GI Fellow. The patient was seen and examined earlier. Medical records, lab studies, imagings were reviewed. Last 24 hours events reviewed. Agreed with the above treatment plan as outlined in GI Fellow 's notes with the addition of the following Patient is doing better Good drainage of bile noted Abdomen soft non-tender Followup electrolytes Discussed with patient's daughter and Dr. Rodríguez Arranged for tertiary care pancreatic center Can be discharged in AM Need a visiting nurse support 01/11/18 22:29
[2018-01-10] MEDS ORDERED: Midazolam 2 MG/2 ML VIAL ONE ×2 (12:39→13:01)
[2018-01-10] MEDS ORDERED: Lidocaine 2% Inj (20ml) ONE (12:40)
[2018-01-10] MEDS ORDERED: Iodixanol 320 mg/ml 150 ml Bottle IV ONE (12:43)
[2018-01-10] MEDS ORDERED: DiphenhydrAMINE 50 mg/ml Inj ONE (13:11)
[2018-01-10] MEDS ORDERED: Iodixanol 320 MG/ML 100 ML BOTTLE IV ONE (13:14)
[2018-01-10] MEDS ORDERED: HYDROmorphone 2 mg/ml ISec ONE (14:27)
[2018-01-10] MEDS: HYDROmorphone 2 mg/ml ISec IVP PRN ×2 (14:29→20:12)
[2018-01-10] MEDS: Sodium Chloride 0.45% 1,000 ML IV SCH (17:24)
--- NOTE | 2018-01-10 18:57 | VASCULAR ---
PROCEDURE: 1. Transhepatic cholangiogram 2. Common bile duct dilatation 3. Internal/external biliary drain placement HISTORY: Painless jaundice. Mid CBD obstruction. Failed ERCP. Needs drainage. PHYSICIAN(S): Kenny Moe MD. TECHNIQUE: The relative risks and indications of the procedure were explained to the patient and consent obtained. Preliminary sonography demonstrated dilated left ducts in the subxiphoid area. This was prepped and draped usual sterile fashion. Conscious sedation monitoring were provided throughout the procedure by a nurse A single puncture under ultrasound guidance was performed into the left hepatic duct peripherally. Contrast was injected and a cholangiogram performed. Exchange is made for a 4 Albanian dilator. Next a 0.035 angled glidewire and 5 Albanian catheter were advanced to the level of the mid CBD obstruction. The obstruction was probed with a Glidewire. The wire passed rather easily into the distal CBD. Imaging in the distal CBD was performed with contrast. A support wire was placed in the distal duodenum Sequential dilatation was performed. Initial attempts at passing the 12 Albanian biliary drain through the obstruction were unsuccessful. Subsequently the focal CBD obstruction was dilated with a 7 mm balloon. Eventually the 12 Albanian internal external biliary drain was advanced into the duodenum. The catheter was flushed and secured. The patient tolerated the procedure well P FINDINGS: Moderate intrahepatic bile duct dilatation is seen. There is a malignant 1.5 cm obstruction of the CBD just below the insertion of the cystic duct. The distal CBD is normal in appearance. IMPRESSION: 1.Malignant appearing 1.5 cm obstruction of the CBD just below the insertion of the cystic duct 2. Successful dilatation of the obstruction with a 7 mm balloon. 3. 12 Albanian internal/external biliary drain placement.
--- NOTE | 2018-01-11 02:28 | PN ---
DATE: 01/10/2018 SUBJECTIVE: The patient is 72 years old, seen and examined, very anxious, had percutaneous stent placed in biliary tract. PHYSICAL EXAMINATION: VITAL SIGNS: He is afebrile, pulse 50, respirations 12, blood pressure 148/71. LUNGS: Bilateral fair airflow. No rhonchi or crackle. HEART: S1 and S2 audible. ABDOMEN: Soft, drain in place draining greenish bile. LABORATORY DATA: WBC is 5, hemoglobin 10.2, hematocrit 32, platelets of 179. PT 38.6, INR 1.16. Chemistry; sodium 138, potassium 3.7, chloride 106, CO2 of 21, BUN 7, creatinine 0.9, blood sugar 222. ASSESSMENT: 1. Obstructive jaundice. 2. Status post transhepatic cholangiogram and common bile duct dilatation, status post biliary drainage. 3. Hypertension. 4. Hyperlipidemia. 5. Zwx-gdhlpnl-dvwyksnry diabetes. PLAN: Currently, the patient is on IV fluid and Lyrica. Need to monitor blood sugar, monitor drainage. Spoke to Dr. Kenny Moe, in his opinion seems to be structured probably secondary to some malignant process, need a tissue biopsy. Will speak to the family, might refer him to [facility] for tissue biopsy and further management including surgical intervention versus external radiation. Derrick Rodríguez MD
[2018-01-11] MEDS: Oxycodone/Acetaminophen 5/325 mg Tab PO PRN ×2 (04:05→09:53)
[2018-01-11] MEDS: Sodium Chloride 0.45% 1,000 ML IV SCH (04:07)
[2018-01-11] MEDS: Pantoprazole 40 mg EC Tab PO SCH (05:30)
[2018-01-11] MEDS: Insulin Lispro (HUMAlog) HIGH Coverage SC SCH ×4 (08:20→23:37)
[2018-01-11 09:02] LABS: HEMOGLOBIN 10.6 g/dL (14.0-18.0); MEAN CELL VOLUME 90.5 fl (80.0-105.0); MEAN CORPUSCULAR HEMOGLOBIN 29.7 pg (25.0-35.0); MEAN CORPUSCULAR HGB CONC 32.8 g/dl (31.0-37.0); PLATELET COUNT 172 10^3/uL (120.0-450.0); RBC 3.57 10^6/uL (3.5-6.1); RED CELL DISTRIBUTION WIDTH 24.2 % (11.5-14.5); WHITE BLOOD COUNT 6.4 10^3/uL (4.5-11.0)
[2018-01-11 09:18] LABS: INR 1.2; PROTHROMBIN TIME 13.9 SECONDS (9.4-12.5)
[2018-01-11 10:09] LABS: BLOOD UREA NITROGEN 8 mg/dL (7-21)
[2018-01-11 10:10] LABS: ALBUMIN 3.6 g/dL (3.0-4.8); CALCIUM 9.4 mg/dL (8.4-10.5); GFR NON-AFRICAN AMERICAN > 60
[2018-01-11 10:11] LABS: ALT/SGPT 51 U/L (7-56); AST/SGOT 85 U/L (17-59)
--- NOTE | 2018-01-11 10:21 | CP.PCM.PN ---
<Jovany Inman - Last Filed: 01/11/18 10:15> Subjective - Date & Time of Evaluation Date of Evaluation: 01/11/18 Time of Evaluation: 07:30 - Subjective Subjective: PGY6 GI Fellow Progress Note Patient seen and examined bedside this morning. The patient states that he is feeling well. Some minor discomfort at I/E drain site. No events overnight. 12 system ROS performed and negative except where stated Objective - Vital Signs/Intake and Output Vital Signs (last 24 hours): Temp Pulse Resp BP Pulse Ox 98.5 F 62 20 134/20 L 97 01/11/18 06:00 01/11/18 06:00 01/11/18 06:00 01/11/18 06:00 01/11/18 06:00 Intake and Output: 01/11/18 01/11/18 06:59 18:59 Intake Total 120 Output Total 1000 Balance -880 - Medications Medications: Current Medications Acetaminophen (Tylenol 325mg Tab) 650 mg PO Q4 PRN PRN Reason: Pain, Mild (1-3) Finasteride (Proscar) 5 mg PO DAILY [facility] Last Admin: 01/10/18 09:46 Dose: 5 mg Hydromorphone HCl (Dilaudid) 2 mg IVP Q4H PRN PRN Reason: Pain, severe (8-10) Last Admin: 01/10/18 20:12 Dose: 2 mg Sodium Chloride (Sodium Chloride 0.45%) 1,000 mls @ 75 mls/hr IV .[id number] [facility] Stop: 01/11/18 14:00 Last Admin: 01/11/18 04:07 Dose: 75 mls/hr Insulin Human Lispro (Humalog High) 0 units SC [facility]; Protocol Last Admin: 01/11/18 08:20 Dose: Not Given Lisinopril (Zestril) 2.5 mg PO DAILY [facility] Last Admin: 01/10/18 10:11 Dose: Not Given Ondansetron HCl (Zofran Inj) 4 mg IVP Q6H PRN PRN Reason: Nausea/Vomiting Oxycodone/Acetaminophen (Percocet 5/325 Mg Tab) 1 tab PO Q4H PRN PRN Reason: Pain, moderate (4-7) Stop: 01/13/18 13:34 Last Admin: 01/11/18 09:53 Dose: 1 tab Pantoprazole Sodium (Protonix Ec Tab) 40 mg PO 0600 [facility] Last Admin: 01/11/18 05:30 Dose: 40 mg - Labs Labs: 01/11/18 08:15 01/10/18 09:00 PT 13.9 SECONDS (9.4-12.5) H 01/11/18 08:15 INR 1.20 01/11/18 08:15 APTT 26.2 Seconds (25.1-36.5) 01/08/18 08:30 - Constitutional Appears: Non-toxic, No Acute Distress - Eye Exam Eye Exam: EOMI, PERRL, Scleral icterus - ENT Exam ENT Exam: Mucous Membranes Moist - Respiratory Exam Respiratory Exam: Clear to Ausculation Bilateral. absent: Rales, Rhonchi, Wheezes - Cardiovascular Exam Cardiovascular Exam: RRR, +S1, +S2 - GI/Abdominal Exam GI & Abdominal Exam: Soft, Tenderness (mild epigastric), Normal Bowel Sounds. absent: Distended, Firm, Guarding, Rigid, Organomegaly Additional comments: I/E drain with bilious drainage noted - Extremities Exam Extremities Exam: Normal Inspection. absent: Pedal Edema - Neurological Exam Neurological Exam: Alert, Awake, Oriented x3 - Psychiatric Exam Psychiatric exam: Normal Affect, Normal Mood - Skin Skin Exam: Dry, Warm Additional comments: jaundice Assessment and Plan - Assessment and Plan (Free Text) Assessment: Patient is a 72yo male with PMHx significant for HTN, hyperlipidemia, diabetes and recent C diff colitis s/p outpatient antibiotic therapy who presented with painless jaundice. 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) - concern for occult malignancy (pancreatic, cholangiocarcinoma) -Pancreatic lesion on CT -Gallstones -Duodenal ulcer Plan: -S/P IR cholangiography, stricture dilation and internal/external drain placement -Drainage noted from I/E, monitor output -Will send autoimmune markers given unclear biliary stricture - ТАТЬЯНА, AMA, SMA, IgG4, ANCA -Consider hepatobiliary surgical evaluation -Plan for repeat EUS to evaluate pancreatic lesion -Continue PPI therapy -Diet as tolerated -Monitor clinical course <Yanely Rubio V - Last Filed: 01/11/18 22:39> Objective - Vital Signs/Intake and Output Vital Signs (last 24 hours): Temp Pulse Resp BP Pulse Ox 97.9 F 62 18 117/57 L 96 01/11/18 22:16 01/11/18 22:16 01/11/18 22:16 01/11/18 22:16 01/11/18 22:16 Intake and Output: 01/11/18 01/12/18 18:59 06:59 Intake Total 240 Output Total 100 Balance 140 - Medications Medications: Current Medications Acetaminophen (Tylenol 325mg Tab) 650 mg PO Q4 PRN PRN Reason: Pain, Mild (1-3) Finasteride (Proscar) 5 mg PO DAILY [facility] Last Admin: 01/11/18 10:17 Dose: 5 mg Hydromorphone HCl (Dilaudid) 2 mg IVP Q4H PRN PRN Reason: Pain, severe (8-10) Last Admin: 01/11/18 20:22 Dose: 2 mg Insulin Human Lispro (Humalog High) 0 units SC [facility]; Protocol Last Admin: 01/11/18 18:44 Dose: Not Given Lisinopril (Zestril) 2.5 mg PO DAILY [facility] Last Admin: 01/11/18 10:17 Dose: 2.5 mg Ondansetron HCl (Zofran Inj) 4 mg IVP Q6H PRN PRN Reason: Nausea/Vomiting Oxycodone/Acetaminophen (Percocet 5/325 Mg Tab) 1 tab PO Q4H PRN PRN Reason: Pain, moderate (4-7) Stop: 01/13/18 13:34 Last Admin: 01/11/18 09:53 Dose: 1 tab Pantoprazole Sodium (Protonix Ec Tab) 40 mg PO 0600 [facility] Last Admin: 01/11/18 05:30 Dose: 40 mg - Labs Labs: 01/11/18 08:15 01/11/18 08:15 PT 13.9 SECONDS (9.4-12.5) H 01/11/18 08:15 INR 1.20 01/11/18 08:15 APTT 26.2 Seconds (25.1-36.5) 01/08/18 08:30 Attending/Attestation - Attestation I have personally seen and examined this patient.: Yes I have fully participated in the care of the patient.: Yes I have reviewed all pertinent clinical information, including history, physical exam and plan: Yes Notes (Text): This is an addendum to GI progress report dictated by the GI Fellow. The patient was seen and examined earlier. Medical records, lab studies, imagings were reviewed. Last 24 hours events reviewed. Agreed with the above treatment plan as outlined in GI Fellow 's notes with the addition of the following Followup of the electrolytes LFTs are improving Arranged for outpatient pancreatic center consultation at [facility] Need visiting nurse care for drainage catheter care GI perspective patient can be discharged in AM Need copies of the CD imaging studies to be given to the patient for followup at the pancreatic center 01/11/18 22:39
[2018-01-11] MEDS: HYDROmorphone 2 mg/ml ISec IVP PRN ×2 (12:27→20:22)
[2018-01-11] MEDS ORDERED: Insulin Lispro (humaLOG) MIX 75/25(10 ml) SC ONE (17:45)
--- NOTE | 2018-01-12 00:56 | PN ---
DATE: 01/11/2018 SUBJECTIVE: The patient is a 72-year-old, seen and examined. Had percutaneous stent placed, draining thick greenish bile. Denies any abdominal pain. Resting in bed comfortably. PHYSICAL EXAMINATION VITAL SIGNS: He is afebrile. Pulse 61, respirations 16, blood pressure 116/64. LUNGS: Bilateral fair airflow. No rhonchi or crackle. HEART: S1 and S2 audible. ABDOMEN: Soft. Drain in place, drained 200 mL of greenish bile. NEUROLOGICAL: He is awake, alert, oriented and communicative. LABORATORY DATA: WBC 6.4, hemoglobin 10.6, hematocrit 32.3, platelets 172. PT 13.9, INR 1.20. Chemistry: Sodium 135, potassium 4, chloride 101, CO2 of 24, BUN 8, creatinine 0.9, blood sugar 207. Total bili is 22.4, alk phos 536. ASSESSMENT: 1. Obstructive jaundice. 2. 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 3. Pancreatic lesion in the tail of the pancreas. 4. Cholelithiasis. 5. Duodenal ulcer. 6. Hypertension. 7. Mye-yijdcba-wnqkvpbny diabetes. PLAN: I had a long discussion with Dr. Rubio. He spoke to who has office hour in [place] once a week. He will make appointment and we will arrange for home visiting nurses who can take care of the patient to help him to empty the bag and manage the drain until he sees the customer consulting manager in [place] or [place] depending on the patient's family's discretion. We will follow up LFT. Derrick Rodríguez MD
[2018-01-12] MEDS: HYDROmorphone 2 mg/ml ISec IVP PRN ×2 (01:03→10:18)
[2018-01-12] MEDS: Pantoprazole 40 mg EC Tab PO SCH (05:18)
[2018-01-12] MEDS: Insulin Lispro (HUMAlog) HIGH Coverage SC SCH ×2 (08:04→11:40)
[2018-01-12 08:13] LABS: ALBUMIN 3.4 g/dL (3.0-4.8); ALT/SGPT 42 U/L (7-56); AST/SGOT 45 U/L (17-59); BLOOD UREA NITROGEN 11 mg/dL (7-21); CALCIUM 9.3 mg/dL (8.4-10.5); GFR NON-AFRICAN AMERICAN > 60
--- NOTE | 2018-01-12 10:05 | CP.PCM.PN ---
Subjective - Date & Time of Evaluation Date of Evaluation: 01/12/18 Time of Evaluation: 09:00 - Subjective Subjective: PGY6 GI Fellow Progress Note Patient seen and examined bedside this morning. The patient states that he is feeling well today with no new complaints. No events overnight. 12 system ROS performed and negative except where stated Objective - Vital Signs/Intake and Output Vital Signs (last 24 hours): Temp Pulse Resp BP Pulse Ox 98.4 F 64 20 101/59 L 98 01/12/18 06:00 01/12/18 06:00 01/12/18 06:00 01/12/18 06:00 01/12/18 06:00 Intake and Output: 01/12/18 01/12/18 06:59 18:59 Intake Total 240 Output Total 800 Balance -560 - Medications Medications: Current Medications Acetaminophen (Tylenol 325mg Tab) 650 mg PO Q4 PRN PRN Reason: Pain, Mild (1-3) Finasteride (Proscar) 5 mg PO DAILY [facility] Last Admin: 01/11/18 10:17 Dose: 5 mg Hydromorphone HCl (Dilaudid) 2 mg IVP Q4H PRN PRN Reason: Pain, severe (8-10) Last Admin: 01/12/18 01:03 Dose: 2 mg Insulin Human Lispro (Humalog High) 0 units SC [facility]; Protocol Last Admin: 01/12/18 08:04 Dose: 7 units Lisinopril (Zestril) 2.5 mg PO DAILY [facility] Last Admin: 01/11/18 10:17 Dose: 2.5 mg Ondansetron HCl (Zofran Inj) 4 mg IVP Q6H PRN PRN Reason: Nausea/Vomiting Oxycodone/Acetaminophen (Percocet 5/325 Mg Tab) 1 tab PO Q4H PRN PRN Reason: Pain, moderate (4-7) Stop: 01/13/18 13:34 Last Admin: 01/11/18 09:53 Dose: 1 tab Pantoprazole Sodium (Protonix Ec Tab) 40 mg PO 0600 [facility] Last Admin: 01/12/18 05:18 Dose: 40 mg - Labs Labs: 01/11/18 08:15 01/12/18 08:00 PT 13.9 SECONDS (9.4-12.5) H 01/11/18 08:15 INR 1.20 01/11/18 08:15 APTT 26.2 Seconds (25.1-36.5) 01/08/18 08:30 - Constitutional Appears: Non-toxic, No Acute Distress - Eye Exam Eye Exam: EOMI, PERRL, Scleral icterus - ENT Exam ENT Exam: Mucous Membranes Moist - Respiratory Exam Respiratory Exam: Clear to Ausculation Bilateral. absent: Rales, Rhonchi, Wheezes - Cardiovascular Exam Cardiovascular Exam: RRR, +S1, +S2 - GI/Abdominal Exam GI & Abdominal Exam: Soft, Normal Bowel Sounds. absent: Distended, Firm, Guarding, Rigid, Tenderness, Organomegaly Additional comments: I/E drain in place - Extremities Exam Extremities Exam: Normal Inspection. absent: Pedal Edema - Neurological Exam Neurological Exam: Alert, Awake, Oriented x3 - Psychiatric Exam Psychiatric exam: Normal Affect, Normal Mood - Skin Skin Exam: Dry, Warm Additional comments: jaundice Assessment and Plan - Assessment and Plan (Free Text) Assessment: Patient is a 72yo male with PMHx significant for HTN, hyperlipidemia, diabetes and recent C diff colitis s/p outpatient antibiotic therapy who presented with painless jaundice. 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) - concern for occult malignancy (pancreatic, cholangiocarcinoma) -Pancreatic lesion on CT -Gallstones -Duodenal ulcer Plan: -S/P IR cholangiography, stricture dilation and internal/external drain placement -Closely monitor electrolytes following drain insertion -Autoimmune markers pending, unclear biliary stricture though suspicion for malignancy - AMA, SMA, IgG4, ANCA; ТАТЬЯНА negative -Consider hepatobiliary surgical evaluation -Patient recommended to follow up with Dr Cardoza at [facility]- (also at [place]) - information and contact information given to patient and patient's daughter - understand importance of outpatient follow up -Patient should be given CD copy of all pertinent imaging for outpatient follow up - 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
--- NOTE | 2018-01-12 14:46 | DS ---
HISTORY OF PRESENT ILLNESS: The patient is 72 years old who was recently treated by Dr. Cordoba, for C. diff colitis. He was given Flagyl and after that he noted that he is turning yellow. He saw Dr. Cordoba who has advised him to come to emergency room. His initial CAT scan shows dilatation of biliary tract, underwent ERCP, but there was duodenal swelling, so they were unable to put stent; however, had percutaneous stent placement by Dr. Kenny Moe. He has been draining bile. Complained of feeling nauseous at time, decreased appetite. PHYSICAL EXAMINATION: VITAL SIGNS: He is afebrile. Pulse 62, respiration 20 and blood pressure 136/91. LUNGS: Bilateral fair airflow. No rhonchi or crackle. HEART: S1 and S2, audible. ABDOMEN: Soft and nontender. No rebound. No guarding. His biliary drain that is draining very scanty, greenish bile. EXTREMITIES: Bilateral leg, no edema. LABORATORY EXAM: Chemistry; his sodium 134, potassium 3.9, chloride 100, CO2 of 24, BUN 11, creatinine 0.8 and blood sugar of 280. His total bili is 18 and it is coming down, it was 22.4 yesterday. His CA-99 was [id number]. ASSESSMENT: 1. 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 2. Non-insulin dependant diabetes. 3. Hypertension. PLAN: The patient will be discharged home today. He will be taught how to empty his bag. We will discontinue his Crestor. Continue metformin, continue Proscar and glimepiride. Need to monitor his blood sugar according to his oral intake. His oral hypoglycemic has to be adjusted. I spoke to Dr. Rubio. Arrangement is being made to see Dr. Buitrago who has clinic in [place] weekly and the patient will follow up with that pancreatic group. Derrick Rodríguez MD
[2018-01-12 15:11] VITALS: BP 107/63; PULSE 66; RESP 18; TEMP 98; O2SAT 100
== END 2018-01-12 17:59 | disposition home health service (06) | DRG 435 ==
LOC: ED 15:53 → ERH 20:35 → 5RSO 21:45
PROVIDERS: ADMIT Internal Medicine; ATTEND Internal Medicine
PROC: 0D9930Z Drainage of Duodenum with Drainage Device, Percutaneous Approach (ICD-10-PCS; 2018-01-07)
PROC: BF10YZZ Fluoroscopy of Bile Ducts using Other Contrast (ICD-10-PCS; 2018-01-07)
PROC: 0DB68ZX Excision of Stomach, Via Natural or Artificial Opening Endoscopic, Diagnostic (ICD-10-PCS; 2018-01-07)
PROC: 0F793DZ Dilation of Common Bile Duct with Intraluminal Device, Percutaneous Approach (ICD-10-PCS; 2018-01-07 14:00)
PROC: 0F9930Z Drainage of Common Bile Duct with Drainage Device, Percutaneous Approach (ICD-10-PCS; principal; 2018-01-10)
PROC: 0F793DZ Dilation of Common Bile Duct with Intraluminal Device, Percutaneous Approach (ICD-10-PCS; 2018-01-10)
PROC: BF101ZZ Fluoroscopy of Bile Ducts using Low Osmolar Contrast (ICD-10-PCS; 2018-01-10)
DX: C24.0 Malignant neoplasm of extrahepatic bile duct (principal); K83.1 Obstruction of bile duct; C25.9 Malignant neoplasm of pancreas, unspecified; K80.21 Calculus of gallbladder without cholecystitis with obstruction; A04.72 Enterocolitis due to Clostridium difficile, not specified as recurrent; K26.9 Duodenal ulcer, unspecified as acute or chronic, without hemorrhage or perforation; I10 Essential (primary) hypertension; E11.9 Type 2 diabetes mellitus without complications; K75.9 Inflammatory liver disease, unspecified; R79.89 Other specified abnormal findings of blood chemistry; K29.50 Unspecified chronic gastritis without bleeding; Z79.4 Long term (current) use of insulin; Z86.19 Personal history of other infectious and parasitic diseases; E78.5 Hyperlipidemia, unspecified; Z79.899 Other long term (current) drug therapy